=== PATIENT | male | born 1940 | race Caucasian/White ===

== ENCOUNTER → 2017-04-05 | Day surgery (SDC) | payer OTHER ==
[~2017-04-05] VITALS: Ht 185.4 cm; Wt 71.2 kg
[~2017-04-05] MED LIST: ALBUTEROL2.5 MG/0.5 NEB; AUGMENTIN 875 M1 TAB PO; AZITHROMYCIN250 MG PO; BACTRIM DS 8001 TA1 PO; CLARITIN10 MG PO; COUMADIN1 M1 PO; COUMADIN1 MG PO; D-1000 185 MG-11 TAB PO; DELTASONE20 MG PO; DOXYCYCLINE100 M3 PO; DUONEB 3 MG/3 ML3 M1 NEB; Diltiazem240 MG PO; ELIQUIS5 M1 PO; FUROSEMIDE20 MG PO; GLUCOPHAGE500 M1 PO; KEFLEX500 MG PO; LASIX40 MG PO; LEVAQUIN750 M1 PO; LEVOFLOXACIN500 MG PO; MEDROL DOSEPAK4 MG PO; PREDNISONE10 MG PO; PROVENTIL0.09 MG/A1 INH; PROVENTIL0.09 MG/AC INH; SPIRIVA18 MCG IH; SPIRIVA18 MCG INH; SYMBICORT1 AE1 INH; VENTOLIN 02.5 MG/3 M INH; VIAGRA100 MG PO; VITAMIN B12 1541 TAB PO; WARFARIN SOD5 MG PO
--- NOTE | ~2017-04-05 | O ---
[place], [place] OPERATIVE NOTE [id number] UNIT #: [id number] ROOM: DOCTOR: SHAD ROSE MD BIRTHDATE: [birth year] DOS: 04/05/2017 PREOPERATIVE DIAGNOSIS: Cataract, right eye. POSTOPERATIVE DIAGNOSIS: Cataract, right eye. OPERATION: Extracapsular cataract extraction by phacoemulsification with posterior chamber intraocular lens implantation, right eye. ANESTHESIA: Monitored standby. OPERATIVE FINDINGS AND PROCEDURE: 2% Xylocaine topical anesthetic gel was applied to the eye in the preop area. The patient was taken to the operating room and prepped and draped in the standard fashion for sterile intraocular surgery. A time out procedure was performed verifying correct patient, correct site and corrects lens with Jyoti Rose M.D. The operating microscope was swung into position and the lid speculum was inserted. Using a Shilpi paracentesis blade, a paracentesis was made through clear cornea. Viscoelastic was used to fill the anterior chamber. Using a metal keratome a 2.4 mm self-sealing clear corneal cataract incision was made temporally at the limbus. Using a pre-bent 25 gauge cystotome needle, a standard continuous curvilinear capsulorrhexis was performed. The anterior capsule was removed with forceps. The lens nucleus was hydrodissected and phacoemulsified in the posterior chamber. Cortical material was removed with the irrigation aspiration hand piece and the posterior capsule was then polished with a curet under irrigation. The posterior chamber and capsular bag were filled with viscoelastic. A posterior chamber intraocular lens manufactured by: [employer], Model #[id number], 18.5 diopters in strength were then inserted into the posterior chamber and within the capsular bag using the lens cartridge and injector system. Viscoelastic was removed using the irrigation aspiration handpiece. The anterior chamber was filled with balanced salt solution through the paracentesis. Both the paracentesis site and cataract incisions were hydrated with BSS and verified to be water-tight and self-sealing. Cefuroxime 1 mg/0.1 mL was injected into the anterior chamber through the paracentesis site. The incision checked to be water-tight using a Weck-Kyara sponge. The integrity of the cataract wound and ocular tension were checked. Lid speculum and drapes were removed. The patient was transferred from the operating room to the recovery room in satisfactory condition. [place], [place] OPERATIVE NOTE NAME: KUNALBRIGIDA UNIT #: [id number] ROOM: DOCTOR: SHAD ROSE MD BIRTHDATE: [birth year] SHAD ROSE MD CM:OPRECORD:OPERATIVE NOTE [id number] SHAD ROSE MD 04/05/17 1809 interface
[2017-04-05 12:45] VITALS: BP 138/68
[2017-04-05 13:50] VITALS: BP 125/74
[2017-04-05 14:11] VITALS: BP 112/76
[2017-04-05 14:22] VITALS: BP 150/76
== END | disposition home or self-care (01) ==
LOC: SDC 04-03 15:30
DX: H26.9 Unspecified cataract (principal); I48.91 Unspecified atrial fibrillation; J45.909 Unspecified asthma, uncomplicated; I10 Essential (primary) hypertension; I50.9 Heart failure, unspecified; J43.9 Emphysema, unspecified; Z98.890 Other specified postprocedural states; Z79.01 Long term (current) use of anticoagulants; Z85.46 Personal history of malignant neoplasm of prostate; Z87.891 Personal history of nicotine dependence; Z80.9 Family history of malignant neoplasm, unspecified; Z82.49 Family history of ischemic heart disease and other diseases of the circulatory system; Z87.81 Personal history of (healed) traumatic fracture; Z90.49 Acquired absence of other specified parts of digestive tract

== ENCOUNTER 2017-05-13 17:13 | Inpatient (IN) | payer OTHER ==
[~2017-05-13] VITALS: Ht 185.4 cm; Wt 112.5 kg
--- NOTE | ~2017-05-13 | CON ---
[place], [place] REPORT OF CONSULTATION NAME[id number] UNIT #: [id number] ROOM: 410 DOCTOR: VARINDER ALAS MD BIRTHDATE: [birth year] DOS: 05/15/2017 HISTORY OF PRESENT ILLNESS: This is a 77-year-old -[place] man with severe COPD with ____ who has been on oxygen for a long time. He also has chronic atrial fibrillation, which he has had for the last 13 years. He has essential hypertension, diabetes mellitus, anemia, hypercoagulable state according to his notes, sleep apnea and obesity. He also has what sounds like an incisional abdominal hernia. He came to the hospital a couple of days ago because of some swelling and redness around left eye, which is not an issue anymore. He has chronic shortness of breath worsening and had no palpitations, no dizziness or loss of consciousness. He did not have any chest pain or pressure. He has had swelling in the legs for a very long time, in fact my notes of 2008 mention of edema of the legs. This has got worse recently. He has difficulty breathing sitting and lying down. No nausea, abdominal pain or blood in the stools. He is on 4 bronchodilators for his COPD, apixaban 5 mg b.i.d., cholecalciferol with vitamin D 1000 units daily, diltiazem 240 daily, furosemide 40 mg b.i.d. SOCIAL HISTORY: He quit smoking about 5 years ago. PHYSICAL EXAMINATION: GENERAL: This is a patient who is wearing oxygen. He is very tachypneic and seems to be using accessory muscles of respiration. He seems somewhat distraught. Complexion is fine. He is afebrile. There is no thyromegaly or finger clubbing. VITAL SIGNS: Pulse is irregular at 80 beats per minute, blood pressure 138/65. NECK: JVP is greater than 15 cm with positive AJR. External jugular veins are also distended. there is no carotid bruit. CARDIAC: Auscultation reveals irregular heart rate. No murmurs or rub. He has 4+ pedal edema and 3+ pretibial edema and there is mild erythema of the feet. RESPIRATORY: He is tachypneic. Percussion note reveals hyperresonance and auscultation reveals severely reduced breath sounds bilaterally. ABDOMEN: Somewhat large with large abdominal wall hernia and liver may be enlarged. DIAGNOSTIC STUDIES: An ECG showed atrial fibrillation with rapid ventricular rate, an intraventricular conduction defect and no ST abnormalities. Troponin I levels are normal. Chest x-ray demonstrated no pulmonary edema. Renal function is normal. Potassium 3.8 and lipid profile is excellent. IMPRESSION: 1. This patient has chronic atrial fibrillation. The rate has been somewhat fast. 2. He has had diagnosis of heart failure diagnosed previously. Currently it seems it is predominantly right-sided failure with markedly elevated jugular [place], [place] REPORT OF CONSULTATION NAME: BRIGIDA SYED UNIT #: [id number] ROOM: 410 DOCTOR: VARINDER ALAS MD BIRTHDATE: [birth year] venous pressure and much peripheral edema, but no pulmonary edema. 3. He has not had any chest pain. ECG shows nothing to be concerned regarding coronary artery disease. RECOMMENDATIONS: 1.Dose of furosemide should be increased to unload more of his edema, which is quite symptomatic. 2. Heart rate needs to be controlled adequately. I would recommend using a beta richard since diltiazem is also making edema in the lower extremities worse. I saw this patient on behalf of Dr. Alvarez. He will be seeing this patient tomorrow. VARINDER ALAS MD CM:CONSTR:REPORT OF CONSULTATION 180 05/15/17 9120 interface
--- NOTE | ~2017-05-13 | ST ---
[place], [place] EXERCISE STRESS TEST REPORT NAME: BRIGIDA SYED UNIT #: [id number] ROOM: 410 DOCTOR: MARIKA CASTILLO MD BIRTHDATE: [birth year] DOS: 05/15/2017 Baseline cardiogram atrial fibrillation with controlled ventricular response with Lexiscan, no new EKG changes. No chest discomfort. Blood pressure and heart rate response was normal. FINAL IMPRESSION: Indeterminate test secondary to the underlying atrial fibrillation. No new EKG changes. No chest pain. Blood pressure and heart rate response was normal. Nuclear images will be reported separately. MARIKA CASTILLO MD CM:STRESS:EXERCISE STRESS TEST REPORT [id number] MARIKA CASTILLO MD
[2017-05-13 17:17] VITALS: BP 171/94
[2017-05-13 18:21] VITALS: BP 174/96
[2017-05-13 18:25] LABS: BASO % 0.2 % (0.0-1.0); EOS # 0.3 10*3/uL (0.0-0.4); EOS % 3.3 % (1.0-4.0); HEMATOCRIT 42.7 % (42.0-52.0); HEMOGLOBIN 13.6 g/dl (14.0-18.0); LYMPH # 1.9 10*3/uL (1.3-4.4); LYMPH % 21.9 % (27.0-41.0); MEAN CELL VOLUME 87.3 fl (80.0-94.0); MEAN CORPUSCULAR HGB 27.8 pg (27.0-31.0); MEAN CORPUSCULAR HGB CONC 31.9 g/dl (33.0-37.0); MEAN PLATELET VOLUME 11.9 fl (9.6-12.3); MONO % 11.8 % (3.0-9.0); NEUT # 5.4 10*3/uL (2.3-7.9); NEUT % 62.6 % (47.0-73.0); PLATELET COUNT AUTOMATED 211 10*3/uL (130-400); RED BLOOD COUNT 4.89 10*6/uL (4.50-5.90); RED CELL DISTRI WIDTH 14.3 % (0-14.5); WHITE BLOOD COUNT 8.6 10*3/uL (4.8-10.8)
[2017-05-13 18:41] LABS: ALBUMIN 3.6 gm/dl (3.1-4.5); ALKALINE PHOSPHATASE 73 U/L (45-117); BILIRUBIN, TOTAL 0.4 mg/dl (0.2-1.0); BUN 16 mg/dl (7-24); CARBON DIOXIDE 33 mmol/L (21-32); CHLORIDE 103 mmol/L (98-107); EST GLOM FILT AFRICAN AMERICAN > 60 ml/min; GLUCOSE 112 mg/dL (65-99); POTASSIUM 3.5 mmol/L (3.5-5.1); SGOT/AST 11 IU/L (3-35); SGPT/ALT 14 U/L (12-78); SODIUM 141 mmol/L (136-145)
[2017-05-13 19:55] VITALS: BP 172/95
[2017-05-13 20:12] LABS: ABG BASE EXCESS 1.8 mmol/L (-2.0-2.0); ABG CO2 CONTENT 29.4 mmol/L (23-27); ABG HCO3 27.9 mmol/l (22-26); ARTERIAL BLOOD GAS PH 7.357 (7.35-7.45); ARTERIAL BLOOD GAS PO2 78.4 mmHg (80-90)
[2017-05-13 21:20] VITALS: BP 164/82
[2017-05-14] VITALS: BP 170/98
[2017-05-14 04:00] VITALS: BP 147/68
[2017-05-14 05:50] LABS: HEMOGLOBIN A1c 6.8 % (4.8-5.6)
[2017-05-14 05:56] LABS: HEMATOCRIT 43.8 % (42.0-52.0); HEMOGLOBIN 13.7 g/dl (14.0-18.0); MEAN CELL VOLUME 86.2 fl (80.0-94.0); MEAN CORPUSCULAR HGB CONC 31.3 g/dl (33.0-37.0); PLATELET COUNT AUTOMATED 227 10*3/uL (130-400); RED BLOOD COUNT 5.08 10*6/uL (4.50-5.90); RED CELL DISTRI WIDTH 14.2 % (0-14.5); WHITE BLOOD COUNT 8.1 10*3/uL (4.8-10.8)
[2017-05-14 06:07] LABS: ALBUMIN 3.7 gm/dl (3.1-4.5); ALKALINE PHOSPHATASE 74 U/L (45-117); BILIRUBIN, TOTAL 0.5 mg/dl (0.2-1.0); BUN 14 mg/dl (7-24); CARBON DIOXIDE 28 mmol/L (21-32); CHLORIDE 105 mmol/L (98-107); CHOLESTEROL 125 mg/dL (<200); EST GLOM FILT AFRICAN AMERICAN > 60 ml/min; GLUCOSE 169 mg/dL (65-99); HDL CHOLESTEROL 60 mg/dl (40-60); LDL CHOLESTEROL 59 mg/dL (9-159); MAGNESIUM 2.1 mg/dL (1.5-2.1); PHOSPHOROUS 3.2 mg/dL (2.5-4.9); POTASSIUM 3.9 mmol/L (3.5-5.1); SGOT/AST 20 IU/L (3-35); SGPT/ALT 24 U/L (12-78); SODIUM 139 mmol/L (136-145); TOTAL PROTEIN 7.3 gm/dL (6.4-8.2); TRIGLYCERIDES 28 mg/dl (<150); VLDL CHOLESTEROL 6 mg/dL (6-40)
[2017-05-14 06:12] LABS: THYROID STIM HORMONE (HS) 0.337 uIU/ml (0.358-4.75)
[2017-05-14 06:32] LABS: FOLIC ACID 21.47 ng/mL (>5.38); VITAMIN D, 25-HYDROXY 35.3 ng/mL (30-100)
[2017-05-14 06:33] LABS: LYMPHOCYTE # 0.3 10*3/uL (1.3-4.4); NEUTROPHIL # 7.8 10*3/uL (2.3-7.9); NEUTROPHILS 96 % (47-73); PLATELET SUFFICIENCY NORMAL (NORMAL); TOTAL CELLS COUNTED 100 #CELLS
[2017-05-14 08:00] VITALS: BP 146/88
[2017-05-14 12:00] VITALS: BP 133/83
[2017-05-14 16:00] VITALS: BP 162/71
[2017-05-14 20:00] VITALS: BP 124/73
[2017-05-15] VITALS: BP 143/62
[2017-05-15 05:33] LABS: BUN 18 mg/dl (7-24); CARBON DIOXIDE 31 mmol/L (21-32); CHLORIDE 104 mmol/L (98-107); EST GLOM FILT AFRICAN AMERICAN > 60 ml/min; GLUCOSE 148 mg/dL (65-99); POTASSIUM 4.6 mmol/L (3.5-5.1); SODIUM 141 mmol/L (136-145)
[2017-05-15 05:35] LABS: VANCOMYCIN TROUGH 16.3 ug/mL (10-20)
[2017-05-15 06:09] LABS: BASO % 0.1 % (0.0-1.0); HEMATOCRIT 40.2 % (42.0-52.0); HEMOGLOBIN 12.7 g/dl (14.0-18.0); IG # 0.1 10*3/uL (0.0-0.1); LYMPH # 1.1 10*3/uL (1.3-4.4); LYMPH % 8.2 % (27.0-41.0); MEAN CELL VOLUME 87.6 fl (80.0-94.0); MEAN CORPUSCULAR HGB 27.7 pg (27.0-31.0); MEAN CORPUSCULAR HGB CONC 31.6 g/dl (33.0-37.0); MEAN PLATELET VOLUME 12.2 fl (9.6-12.3); MONO # 1.3 10*3/uL (0.1-1.0); MONO % 9.8 % (3.0-9.0); NEUT # 10.5 10*3/uL (2.3-7.9); NEUT % 81.5 % (47.0-73.0); PLATELET COUNT AUTOMATED 205 10*3/uL (130-400); RED BLOOD COUNT 4.59 10*6/uL (4.50-5.90); RED CELL DISTRI WIDTH 14.2 % (0-14.5); WHITE BLOOD COUNT 12.8 10*3/uL (4.8-10.8)
[2017-05-15 06:16] LABS: INTERNATIONAL NORM RATIO 1.1 (2.0-3.5); PROTHROMBIN TIME 11.2 SECONDS (9.0-12.4)
[2017-05-15 08:00] VITALS: BP 118/76
[2017-05-15 12:00] VITALS: BP 132/77
[2017-05-15 15:59] VITALS: BP 138/65
[2017-05-15 20:00] VITALS: BP 138/70
[2017-05-16] VITALS: BP 155/70
[2017-05-16 05:26] LABS: BUN 19 mg/dl (7-24); CARBON DIOXIDE 34 mmol/L (21-32); CHLORIDE 101 mmol/L (98-107); EST GLOM FILT AFRICAN AMERICAN > 60 ml/min; GLUCOSE 99 mg/dL (65-99); SODIUM 142 mmol/L (136-145)
[2017-05-16 05:27] LABS: POTASSIUM 3.3 mmol/L (3.5-5.1)
[2017-05-16 06:34] LABS: HEMATOCRIT 44.6 % (42.0-52.0); HEMOGLOBIN 13.9 g/dl (14.0-18.0); MEAN CELL VOLUME 86.9 fl (80.0-94.0); MEAN CORPUSCULAR HGB 27.1 pg (27.0-31.0); MEAN CORPUSCULAR HGB CONC 31.2 g/dl (33.0-37.0); MEAN PLATELET VOLUME 12.3 fl (9.6-12.3); PLATELET COUNT AUTOMATED 242 10*3/uL (130-400); RED BLOOD COUNT 5.13 10*6/uL (4.50-5.90); RED CELL DISTRI WIDTH 14.3 % (0-14.5); WHITE BLOOD COUNT 12.7 10*3/uL (4.8-10.8)
[2017-05-16 07:18] LABS: BASOPHIL # 0.1 10*3/uL (0-0.1); BASOPHILS 1 % (0-1); EOSINOPHIL # 0.1 10*3/uL (0-0.4); EOSINOPHILS 1 % (1-4); MONOCYTE # 1.7 10*3/uL (0.1-1.0); NEUTROPHIL # 8.8 10*3/uL (2.3-7.9); NEUTROPHILS 69 % (47-73); PLATELET SUFFICIENCY NORMAL (NORMAL); TOTAL CELLS COUNTED 100 #CELLS
[2017-05-16 09:13] VITALS: BP 140/71
[2017-05-16 12:00] VITALS: BP 140/88
[2017-05-16 16:00] VITALS: BP 140/89
[2017-05-16] MEDS ORDERED: DILTIAZEM 24HR120 MG PO (17:19)
[2017-05-16] MEDS ORDERED: CLINDAMYCIN HC300 MG PO (17:19)
[2017-05-16] MEDS ORDERED: LASIX80 MG PO (17:19)
[2017-05-16] MEDS ORDERED: K-TAB20 MEQ PO (17:19)
[2017-05-16] MEDS ORDERED: LOPRESSOR25 MG PO (17:19)
== END 2017-05-16 18:08 | disposition home or self-care (01) | DRG 872 ==
LOC: ED 17:13 → EDHOLD 20:45 → 4E 20:45
PROVIDERS: Emergency Medicine; Hospitalist; Internal Medicine; Student in an Organized Health Care Education/Training Program
PROC: 5A09357 Assistance with Respiratory Ventilation, Less than 24 Consecutive Hours, Continuous Positive Airway Pressure (ICD-10-PCS; principal; 2017-05-14)
PROC: 3E033HZ Introduction of Radioactive Substance into Peripheral Vein, Percutaneous Approach (ICD-10-PCS; 2017-05-15)
PROC: 4A02XM4 Measurement of Cardiac Total Activity, External Approach (ICD-10-PCS; 2017-05-15)
DX: A41.9 Sepsis, unspecified organism (principal); I47.2 Ventricular tachycardia; J96.11 Chronic respiratory failure with hypoxia; D68.59 Other primary thrombophilia; I50.32 Chronic diastolic (congestive) heart failure; I11.0 Hypertensive heart disease with heart failure; E11.65 Type 2 diabetes mellitus with hyperglycemia; Z99.81 Dependence on supplemental oxygen; J96.12 Chronic respiratory failure with hypercapnia; L03.213 Periorbital cellulitis; I48.2 Chronic atrial fibrillation; E66.9 Obesity, unspecified; J44.9 Chronic obstructive pulmonary disease, unspecified; E05.80 Other thyrotoxicosis without thyrotoxic crisis or storm; D64.9 Anemia, unspecified; Z90.49 Acquired absence of other specified parts of digestive tract; Z87.891 Personal history of nicotine dependence; Z72.89 Other problems related to lifestyle; Z80.0 Family history of malignant neoplasm of digestive organs; Z82.49 Family history of ischemic heart disease and other diseases of the circulatory system; Z68.32 Body mass index [BMI] 32.0-32.9, adult; Z79.899 Other long term (current) drug therapy

== ENCOUNTER 2017-09-08 03:52 | Inpatient (IN) | payer OTHER ==
[2017-09-08] VITALS (8 sets, daily range): BP systolic 130–186; BP diastolic 74–97
[~2017-09-08] VITALS: Ht 185.4 cm; Wt 120.3 kg
--- NOTE | ~2017-09-08 | EKG ---
[place], [place] ELECTROCARDIOGRAM REPORT NAME: BRIGIDA SYED UNIT #: [id number] ROOM: [facility] DOCTOR: VARINDER ALAS MD BIRTHDATE: [birth year] DOS: 09/09/2017 TIME: 0310 hours. Atrial fibrillation with ventricular rate of 74 beats per minute. Complete right bundle-branch block. An abnormal ECG. No previous tracing is available for comparison. VARINDER ALAS MD CM:EKGRPT:ELECTROCARDIOGRAM REPORT 1620 13 VARINDER ALAS MD
--- NOTE | ~2017-09-08 | EKG ---
[place], [place] ELECTROCARDIOGRAM REPORT NAME: BRIGIDA SYED UNIT #: [id number] ROOM: [facility] DOCTOR: VARINDER ALAS MD BIRTHDATE: [birth year] DOS: 09/08/2017 TIME: 0902 hours. Atrial fibrillation with rapid ventricular rate at 110 beats per minute. Complete right bundle-branch block. When compared with the ECG done about 4 hours earlier, heart rate has increased somewhat. VARINDER ALAS MD CM:EKGRPT:ELECTROCARDIOGRAM REPORT 1613 193 VARINDER ALAS MD
--- NOTE | ~2017-09-08 | EKG ---
[place], [place] ELECTROCARDIOGRAM REPORT NAME: BRIGIDA SYED UNIT #: [id number] ROOM: [facility] DOCTOR: VARINDER ALAS MD BIRTHDATE: [birth year] DOS: 09/08/2017 TIME: 0414 hours. Atrial fibrillation with ventricular rate of 99 beats per minute. Complete right bundle-branch block. An abnormal ECG. No previous tracing is available for comparison. VARINDER ALAS MD CM:EKGRPT:ELECTROCARDIOGRAM REPORT 1613 193 VARINDER ALAS MD
[~2017-09-08 03:52] MED LIST changes: +CLINDAMYCIN HC300 MG PO; +DILTIAZEM 24HR120 MG PO; +K-TAB20 MEQ PO; +LASIX80 MG PO; +LOPRESSOR25 MG PO
[2017-09-08 04:33] LABS: BASO # 0.1 10*3/uL (0.0-0.1); BASO % 0.3 % (0.0-1.0); EOS # 0.6 10*3/uL (0.0-0.4); EOS % 4.3 % (1.0-4.0); HEMATOCRIT 43.8 % (42.0-52.0); HEMOGLOBIN 13.9 g/dl (14.0-18.0); LYMPH # 3.2 10*3/uL (1.3-4.4); LYMPH % 21.3 % (27.0-41.0); MEAN CELL VOLUME 88.3 fl (80.0-94.0); MEAN CORPUSCULAR HGB CONC 31.7 g/dl (33.0-37.0); MEAN PLATELET VOLUME 11.1 fl (9.6-12.3); MONO # 1.1 10*3/uL (0.1-1.0); MONO % 7.3 % (3.0-9.0); NEUT # 9.9 10*3/uL (2.3-7.9); NEUT % 66.4 % (47.0-73.0); PLATELET COUNT AUTOMATED 255 10*3/uL (130-400); RED BLOOD COUNT 4.96 10*6/uL (4.50-5.90); RED CELL DISTRI WIDTH 14.6 % (0-14.5); WHITE BLOOD COUNT 14.9 10*3/uL (4.8-10.8)
[2017-09-08 04:51] LABS: ALBUMIN 3.6 gm/dl (3.1-4.5); ALKALINE PHOSPHATASE 94 U/L (45-117); BUN 16 mg/dl (7-24); CHLORIDE 105 mmol/L (98-107); CREATININE 1.24 mg/dL (0.70-1.30); POTASSIUM 4.2 mmol/L (3.5-5.1); SGOT/AST 31 IU/L (3-35); SGPT/ALT 46 U/L (12-78); SODIUM 142 mmol/L (136-145); TOTAL PROTEIN 7.1 gm/dL (6.4-8.2)
[2017-09-08 04:52] LABS: TROPONIN I 0.043 ng/ml (<0.045)
--- NOTE | 2017-09-08 06:15 | NUR ---
A 77, admitted to , under the services of AARON Conteh DO with a diagnosis of COPD,SEPSIS,PNEUMONITIS. Chief complaint is SHORTNESS OF BREATH. Patient arrived via bed from ER. Monitor applied. Initial assessment completed. Vital signs taken and recorded. AARON CONTEH DO notified of admission to the unit. Orders received. See assessment for past medical history, medications and allergies. Patient and/or family oriented to unit. [facility] visitation policy reviewed. Clothing/patient valuable form completed. TAHIR DAWN
--- NOTE | 2017-09-08 06:20 | NUR ---
Medication reconciliation updated and verified with patient who is alert and oriented x3 and knows his medication and dosages when asked.
--- NOTE | 2017-09-08 08:09 | NUR ---
PT HEART RATE 160'S. DR. PEREZ CALLED AND NOTIFIED OF PT'S RECENT BREATHING TX, THAT THE PT IS IS MOVING IN BED, AND THAT BEARING DOWN INCREASED THE PT'S HR. DR. PEREZ STATED HE WOULD BE PUTTING IN ORDERS FOR THE PT. RIGHT NOW THE PT IS A/OX3, DENIES CP AND SOB. THE PT DOES C/O OF PALPITATIONS AND RACING HEART. NO OTHER COMPLAINTS FROM PT AT THIS TIME.
--- NOTE | 2017-09-08 09:00 | NUR ---
Cardiopulmonary Supervisor in to talk to patient. Patient states lives at home with alone. There are few steps in the home. Physician: [facility] Home health services: none Patient's level of ADLs: MINIMAL ASSIST Patient has working utilities: all working DME: cane, rollator walker, home oxygen nebulizer from [facility] Follow-up physician's appointment after d/c: will be made by hospitalist nurse director upon discharge Does patient want to access PORTAL?: no Discharge plan discussed with patient, patient lives at home alone, states he gets around with a walker, patient has [employer] 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 TAJ LOZANO
--- NOTE | 2017-09-08 09:24 | NUR ---
DR. CASTILLO CALLED AND NOTIFIED OF CONSULT. THE WAS CONCERNED ABOUT NOT BEING ABLE TO SEE THE PATIENT UNTIL TOMORROW. THE WAS UPDATED ON THE PATIENTS CONDITION AND STATED IF NEEDED WE COULD CONSULT ANOTHER NUCLEAR CONTROL OPERATOR BUT IF NOT DR. CASTILLO WILL SEE THE PATIENT TOMORROW MORNING. DR. PEREZ NOTIFIED AND STATED TO KEEP JONATHAN ON THE CASE. NO OTHER CONCERNS.
--- NOTE | 2017-09-08 20:31 | NUR ---
PT. IS SITTING UP ON SIDE OF BED AT THIS TIME. PT. DOES NOT VOICE ANY CONCERNS AND DOES NOT HAVE ANY COMPLAINTS AT THIS TIME. NO DISTRESS NOTED, PT. HAS HOB ELEVATED AND CALL LIGHT WITHIN REACH. SEE SHIFT ASSESSMENT.
--- NOTE | 2017-09-08 22:11 | NUR ---
1 UNIT OF BLOOD TRANSFUSED, PT. TOLERATED PROCEDURE WELL. SECOND UNIT HANGING AND RUNNING. WILL CONTINUE TO MONITOR.
[2017-09-09] VITALS: BP 145/88
--- NOTE | 2017-09-09 01:58 | NUR ---
PRN TYLENOL GIVEN FOR PT COMPLAINTS OF BACK PAIN RATING IT A 6 OUT OF 10. CALL LIGHT WITHIN REACH, WILL MONITOR
--- NOTE | 2017-09-09 02:45 | NUR ---
DR. LUNA CONTACTED IN REGARDS TO PT. EKG CHANGES. DR. LUNA STATED THAT THEY WILL BE UP TO CHECK HIM OUT.
[2017-09-09 06:52] LABS: BASO % 0.1 % (0.0-1.0); HEMATOCRIT 38.5 % (42.0-52.0); HEMOGLOBIN 12.3 g/dl (14.0-18.0); LYMPH % 5.9 % (27.0-41.0); MEAN CELL VOLUME 87.5 fl (80.0-94.0); MEAN CORPUSCULAR HGB CONC 31.9 g/dl (33.0-37.0); MEAN PLATELET VOLUME 11.8 fl (9.6-12.3); MONO # 0.7 10*3/uL (0.1-1.0); MONO % 3.9 % (3.0-9.0); NEUT # 14.8 10*3/uL (2.3-7.9); NEUT % 89.4 % (47.0-73.0); PLATELET COUNT AUTOMATED 226 10*3/uL (130-400); RED CELL DISTRI WIDTH 14.5 % (0-14.5); WHITE BLOOD COUNT 16.6 10*3/uL (4.8-10.8)
[2017-09-09 07:14] LABS: ALBUMIN 3.4 gm/dl (3.1-4.5); ALKALINE PHOSPHATASE 75 U/L (45-117); BUN 20 mg/dl (7-24); CHLORIDE 104 mmol/L (98-107); CREATININE 1.16 mg/dL (0.70-1.30); FREE T4 0.95 ng/dl (0.76-1.46); PHOSPHOROUS 2.8 mg/dL (2.5-4.9); POTASSIUM 4.4 mmol/L (3.5-5.1); SGOT/AST 25 IU/L (3-35); SGPT/ALT 51 U/L (12-78); SODIUM 140 mmol/L (136-145); TOTAL PROTEIN 6.6 gm/dL (6.4-8.2)
[2017-09-09 07:18] LABS: THYROID STIM HORMONE (HS) 0.257 uIU/ml (0.358-4.75)
[2017-09-09 07:20] LABS: ACT PARTIAL THROMBO TIME 31.5 SECONDS (20.8-31.5)
[2017-09-09 08:00] VITALS: BP 104/52
[2017-09-09 08:29] LABS: VITAMIN D, 25-HYDROXY 33.6 ng/mL (30-100)
[2017-09-09 12:00] VITALS: BP 142/89
[2017-09-09 16:00] VITALS: BP 142/83
[2017-09-09 20:00] VITALS: BP 161/70
[2017-09-10] VITALS: BP 143/79
[2017-09-10 07:16] LABS: HEMATOCRIT 42.6 % (42.0-52.0); HEMOGLOBIN 13.7 g/dl (14.0-18.0); MEAN CELL VOLUME 88.4 fl (80.0-94.0); MEAN CORPUSCULAR HGB 28.4 pg (27.0-31.0); MEAN CORPUSCULAR HGB CONC 32.2 g/dl (33.0-37.0); MEAN PLATELET VOLUME 11.2 fl (9.6-12.3); PLATELET COUNT AUTOMATED 286 10*3/uL (130-400); RED BLOOD COUNT 4.82 10*6/uL (4.50-5.90); RED CELL DISTRI WIDTH 14.8 % (0-14.5); WHITE BLOOD COUNT 26.5 10*3/uL (4.8-10.8)
--- NOTE | 2017-09-10 07:35 | NUR ---
Shift chart check completed.
[2017-09-10 07:37] LABS: ACANTHOCYTES FEW; PLATELET SUFFICIENCY NORMAL (NORMAL); TOTAL CELLS COUNTED 100 #CELLS
[2017-09-10 07:40] LABS: BUN 30 mg/dl (7-24); CHLORIDE 104 mmol/L (98-107); CREATININE 1.17 mg/dL (0.70-1.30); POTASSIUM 4.9 mmol/L (3.5-5.1); SODIUM 139 mmol/L (136-145)
[2017-09-10 08:00] VITALS: BP 140/80
[2017-09-10 12:00] VITALS: BP 119/81
--- NOTE | 2017-09-10 13:04 | NUR ---
SPOKE WITH DR ALEXANDRE. PATIENT WANTS TO STAY ANOTHER DAY.
[2017-09-10 16:00] VITALS: BP 138/82
[2017-09-10 20:00] VITALS: BP 147/89
[2017-09-11] VITALS: BP 151/88
[2017-09-11 04:00] VITALS: BP 150/82
[2017-09-11 06:34] LABS: BASO % 0.1 % (0.0-1.0); HEMATOCRIT 40.8 % (42.0-52.0); HEMOGLOBIN 12.9 g/dl (14.0-18.0); LYMPH # 0.9 10*3/uL (1.3-4.4); LYMPH % 4.2 % (27.0-41.0); MEAN CELL VOLUME 89.3 fl (80.0-94.0); MEAN CORPUSCULAR HGB 28.2 pg (27.0-31.0); MEAN CORPUSCULAR HGB CONC 31.6 g/dl (33.0-37.0); MONO # 1.1 10*3/uL (0.1-1.0); MONO % 5.1 % (3.0-9.0); NEUT # 18.6 10*3/uL (2.3-7.9); NEUT % 89.6 % (47.0-73.0); PLATELET COUNT AUTOMATED 250 10*3/uL (130-400); RED BLOOD COUNT 4.57 10*6/uL (4.50-5.90); RED CELL DISTRI WIDTH 14.9 % (0-14.5); WHITE BLOOD COUNT 20.8 10*3/uL (4.8-10.8)
[2017-09-11 07:02] LABS: BUN 31 mg/dl (7-24); CHLORIDE 103 mmol/L (98-107); CREATININE 1.15 mg/dL (0.70-1.30); POTASSIUM 4.7 mmol/L (3.5-5.1); SODIUM 140 mmol/L (136-145)
[2017-09-11 08:00] VITALS: BP 163/92
--- NOTE | 2017-09-11 08:00 | NUR ---
PT RESTING IN BED. NO DISTRESS NOTED. NO VOICED C/O. WILL MONITOR
[2017-09-11] MEDS ORDERED: PREDNISONE10 MG PO (11:34)
[2017-09-11] MEDS ORDERED: LEVAQUIN500 M2 PO (11:34)
[2017-09-11] MEDS ORDERED: MUCINEX ER600 MG PO (11:34)
[2017-09-11 12:00] VITALS: BP 158/68
--- NOTE | 2017-09-11 12:00 | NUR ---
PT HAS SKIN TEAR RIGHT 5TH TOE, PT STATES THAT PT GOT IT CAUGHT ON BATHROOM DOOR YESTERDAY AND CAUSED A SKIN TEAR. PT REFUSES TO HAVE PHOTOS TAKEN AND REFUSES TO HAVE A DRESSING APPLIED
--- NOTE | 2017-09-11 14:45 | NUR ---
Discharge instructions reviewed with patient/family. Patient receptive and verbalizes understanding. Follow-up care arranged. Written instructions given to patient/family. CHRISTIAN NORRIS
--- NOTE | 2017-09-11 16:17 | NUR ---
Location of the wound: right 5th toe Type of wound: skin tear Thickness: Partial Size: 1.5cm x 0.5cm x 0.1cm Tunneling: none Undermining: none Sinus Tract: none Presence of Exudate: Serous Amount: Light Color: Red Odor: None Periwound Skin Appearance: Normal Wound edges: approximated Pain (associated with wound): patient denied at time of assessment How does patient state this happened? patient states he pulled the blanket and tore the skin If wound is on legs/feet or hands, capillary refill time, pulses, color temp, sensation: capillary refill <3 seconds. Palpable pulse present Patient has intact scabs to BLE. NO reddness, NO odor noted. NO drainage noted. Dry skin noted to left back.
--- NOTE | 2017-09-12 07:33 | NUR ---
Patient discharged to home with [facility]. Received order, faxed clincals for referral.
== END 2017-09-11 14:35 | disposition home or self-care (01) | DRG 871 ==
LOC: ED 03:52 → EDHOLD 05:17 → 5E 05:17
PROVIDERS: Internal Medicine; Student in an Organized Health Care Education/Training Program; ADMIT Internal Medicine
PROC: 5A09357 Assistance with Respiratory Ventilation, Less than 24 Consecutive Hours, Continuous Positive Airway Pressure (ICD-10-PCS; principal; 2017-09-10)
DX: A41.9 Sepsis, unspecified organism (principal); J18.9 Pneumonia, unspecified organism; J96.11 Chronic respiratory failure with hypoxia; E11.65 Type 2 diabetes mellitus with hyperglycemia; I11.0 Hypertensive heart disease with heart failure; J96.12 Chronic respiratory failure with hypercapnia; I50.32 Chronic diastolic (congestive) heart failure; E66.01 Morbid (severe) obesity due to excess calories; E11.9 Type 2 diabetes mellitus without complications; D64.9 Anemia, unspecified; J44.1 Chronic obstructive pulmonary disease with (acute) exacerbation; J44.0 Chronic obstructive pulmonary disease with (acute) lower respiratory infection; I48.2 Chronic atrial fibrillation; E05.90 Thyrotoxicosis, unspecified without thyrotoxic crisis or storm; G47.30 Sleep apnea, unspecified; E53.8 Deficiency of other specified B group vitamins; Z99.81 Dependence on supplemental oxygen; Z79.899 Other long term (current) drug therapy; Z90.49 Acquired absence of other specified parts of digestive tract; Z87.891 Personal history of nicotine dependence; Z80.0 Family history of malignant neoplasm of digestive organs; Z82.49 Family history of ischemic heart disease and other diseases of the circulatory system; Z79.51 Long term (current) use of inhaled steroids; Z68.33 Body mass index [BMI] 33.0-33.9, adult

== ENCOUNTER 2017-11-07 00:03 | Inpatient (IN) | payer OTHER ==
[2017-11-07] VITALS (14 sets, daily range): BP systolic 128–209; BP diastolic 74–109
[~2017-11-07] VITALS: Ht 185.4 cm; Wt 125.4 kg
--- NOTE | ~2017-11-07 | PR ---
[place], [place] PROGRESS NOTE [id number] UNIT #: [id number] ROOM: 504 DOCTOR: CHIQUITA PEREZ DO BIRTHDATE: [birth year] DOS: 11/08/2017 SUBJECTIVE: The patient was seen and examined at bedside. The patient was sitting upright in no acute distress. The patient reports that his shortness of breath has mild improvement, continues to have cough without hemoptysis. No new complaints at this time. OBJECTIVE: VITAL SIGNS: Temperature 97.7, pulse is 96, respirations 18, blood pressure 130/60, pulse ox is 94% on 2 liters nasal cannula. GENERAL APPEARANCE: No acute distress. HEENT: Head is normocephalic, atraumatic. Nasal cannula in place. Eyes clear without injection. Oral mucosa is moist. NECK: Supple, nontender. CARDIOVASCULAR: S1 and S2 appreciated. Regular rate and rhythm. LUNGS: Diminished breath sounds in all lung chapin with expiratory wheezing and no crackles are appreciated. ABDOMEN: Soft, nontender, positive bowel signs. EXTREMITIES: No edema, clubbing or cyanosis. NEUROLOGIC: Negative for focal deficits. SKIN: No lesions or rashes LABORATORY DATA: White count was 14.6, hemoglobin 12.7, hematocrit 38.9, platelets count 210. BMP was normal with mild elevation of glucose 147. A1c was elevated at 6.7. Vitamin D 22.4, B12 367, folate 10.11, TSH 0.160. Blood gases showed a pH of 7.4 with pCO2 of 49.8 and pO2 of 126. Chest x-ray this morning showed cardiomegaly and COPD, no acute changes. IMPRESSION: 1. Acute on chronic obstructive pulmonary disease with hypoxia and hypercarbia. 2. History of congestive heart failure, diastolic dysfunction. 3. Obstructive sleep apnea. 4. Moderate obesity. 5. Chronic anticoagulation. PLAN OF CARE: Continue with Dulera, Levaquin, DuoNeb, Lasix, Solu-Medrol. We will continue to follow the patient, no change in current respiratory care at this time. The patient is clinically improved. We will continue to reassess for resolution of symptoms and discharge planning. CHIQUITA PEREZ DO [place], [place] PROGRESS NOTE NAME: BRIGIDA SYED UNIT #: [id number] ROOM: 504 DOCTOR: CHIQUITA PEREZ DO BIRTHDATE: [birth year] LIZBETH ARRINGTON MD CM:PNJAMAR [id number] CHIQUITA PEREZ DO 11/08/17 1325 interface
--- NOTE | ~2017-11-07 | PR ---
[place], [place] PROGRESS NOTE NAME: [facility]IDA [facility]ED [facility]: [id number] UNIT #: [id number] ROOM: 504 DOCTOR: MURPHY ALLEN MD,LIZBETH BIRTHDATE: [birth year] DOS: 11/08/2017 The patient was independently seen and examined with [id number] encounter for this addendum. History was confirmed. Physical examination was performed. Labs were reviewed. The assessment management for the patient was personally completed for today's visit. The patient's note which was done by the medical delivery technician was approved as well. SUBJECTIVE: He has been essentially improving with reduction in respiratory symptoms, shortness of breath, cough and others. The patient has not been noted symptoms of chest pain. Arterial blood gas was done on 3 liters nasal cannula shows improvement in the hypercarbia and normal pH noted today. The patient denies symptoms of chest pain and hemoptysis. The coughing and wheezing has been gradually improving. There were no symptoms of chest pain. The patient denies symptoms of headache. He was complaining of loose stools for this patient yesterday as well. PHYSICAL EXAMINATION: VITAL SIGNS: For the patient which has been recorded shows the temperature patient noted as normal, respiratory rate was normal, heart rate normal, blood pressure normal. Pulse oxygen saturation at this time on 3 liters nasal cannula was noted 98% saturation. HEENT: Chronic obesity. LUNGS: Noted decreased breath sounds, scattered expiratory wheezing. Moderate reduction in the breath sounds bilaterally was noted. ABDOMEN: Soft and nontender. EXTREMITIES: Noted obesity. Skin for the patient noted a dryness and mild edema and redness of the lower extremities. Partial reduction in edema noted for previous exam. CENTRAL NERVOUS SYSTEM: Intact. MUSCULOSKELETAL: No acute deformities. LABORATORY DATA: Chest x-ray of the patient that was done today have been reviewed from the PACS images personally. PA lateral view for today showed changes of severe COPD without any acute pulmonary infiltration. The arterial blood gas today at 3 liters, pH of 7.41, pCO2 49.8, platelet 126. CMP this morning, glucose 147, BUN and creatinine normal, CO2 of 36. PT/INR was 1.1. CBC this morning showed white count 14.6, mild anemia with normal platelet count. IMPRESSION: 1. Resolving acute hypercapnic and acute hypoxic respiratory failure in the patient at this time with exacerbation of chronic obstructive pulmonary disease. Partial reduction and improvement in symptoms, acute congestive heart failure, the patient with possibility of mild cellulitis of lower extremity cannot be excluded. 2. Metabolic alkalosis. 3. History of obstructive sleep apnea disorder. [place], [place] PROGRESS NOTE NAME: BRIGIDA SYED UNIT #: [id number] ROOM: [facility] DOCTOR: MURPHY ALLEN MD,LIZBETH BIRTHDATE: [birth year] PLAN OF CARE: At this time, the patient will be continued with bronchodilators, oxygen supplementation, corticosteroids and other medical management previously. No additional change in treatment at this time will be necessary. Reduction of steroids may be started tomorrow. The patient with possible consideration of home discharge depending further improvement in the respiratory symptoms. LIZBETH ARRINGTON MD CM:PNTRANS [phone] LIZBETH ALLEN MD 11/09/17 0155 interface
--- NOTE | ~2017-11-07 | PR ---
[place], [place] PROGRESS NOTE NAME[facility]DA [facility]ED [id number] UNIT #: [id number] ROOM: 504 DOCTOR: MURPHY ALLEN MD,LIZBETH BIRTHDATE: [birth year] DOS: 11/09/2017 SUBJECTIVE: The patient was independently seen and examined in [id number] encounter, history was confirmed, and labs were reviewed. The assessment and management was personally completed. The note done by the certified medical technician was approved. The patient has been noted progressive resolution improvement in respiratory symptom. The patient with cough, wheezing, shortness of breath and others. PHYSICAL EXAMINATION: VITAL SIGNS: Essentially normal vital signs. The pulse oxygen saturation for the patient was noted as 98% on 3 liters nasal cannula. LUNGS: The patient was noted with occasional wheezing. No crackles. ABDOMEN: Soft, obese, and nontender. EXTREMITIES: Without any edema. LABORATORY DATA: The patient's CBC was noted WBC count elevated 21,000, otherwise relatively normal CBC. The chest x-ray yesterday was done that excluded any pulmonary infiltration. Blood culture, no bacterial growth from 16th of this month. Certainly at this time, the patient has been noted with progressive improvement and resolution of the acute respiratory symptoms, exacerbation of COPD. History of obstructive sleep apnea disorder, stable. The patient could be considered for home discharge with tapering dose of prednisone and antibiotics. Certainly, CBC could be done as an outpatient. Most likely, the elevation of WBC count is related to the use of the corticosteroids. LIZBETH ARRINGTON MD CM:PNTRANS 1307 23 LIZBETH ALLEN MD 11/09/172022 interface
--- NOTE | ~2017-11-07 | CON ---
[place], [place] REPORT OF CONSULTATION NAME: BRIGIDA SYED [facility] #: [id number] UNIT #: [id number] ROOM: 504 DOCTOR: LIZBETH GORDON MD BIRTHDATE: [birth year] DOS: 11/07/2017 CONSULTATION REQUESTED BY: Hospitalist service. REASON FOR CONSULTATION: Complaints of shortness of breath and exacerbation of COPD. HISTORY OF PRESENT ILLNESS: A 77-year-old white male patient who has been known to me during his previous hospitalization does not follow up in the office on regular basis. He has been assessed in the Emergency this morning, as the patient complaining of having shortness of breath occurred for the last several hours symptoms of the patient has been noted gradually worsening. The patient denies symptoms of chest pain with that. However, he has been noted to cough without any sputum expectoration. The patient denies symptoms of chest pain or hemoptysis. The wheezing of the patient was reported on this admission as well. He has been noted with acute exacerbation of chronic obstructive pulmonary disease on this admission and has been started on treatment for that. The patient stated that after getting breathing treatment medication has been noted reduction of the respiratory symptom. However, the improvement has been noted suboptimal from this morning. REVIEW OF SYSTEMS: CONSTITUTIONAL: He does complain of symptoms of fatigue and tiredness. Denies symptoms of fever or chills. EYES: Denies any burning, redness, tenderness. ENT: Denies sore throat, hoarseness, otalgia, postnasal drainage or epistaxis or earache. CARDIOVASCULAR: Denies joint pain, edema, pain, lower extremity or palpitation. GASTROINTESTINAL: Denies dysphagia, nausea, vomiting, diarrhea, abdominal pain, hematemesis, melena, hematochezia. Denies abnormal weight loss, history of chronic obesity, unchanged. GENITOURINARY: No dysuria, suprapubic pain, or hematuria. MUSCULOSKELETAL: No acute joint pain, redness, or tenderness. SKIN: No lesions or rashes. CENTRAL NERVOUS SYSTEM: No dizziness, headache, diplopia, syncopal episodes. Remaining systems were reviewed, they were noted all negative. PAST MEDICAL HISTORY: 1. Centrilobular emphysema which were noted severe. 2. Chronic hypoxic respiratory failure. 3. Congestive heart failure with diastolic dysfunction. 4. Hypercoagulable status history. 5. Essential hypertension. 6. Moderate obesity. 7. Obstructive sleep apnea disorder. PAST SURGICAL HISTORY: 1. Exploratory laparotomy. 2. Appendectomy. 3. Inguinal hernia repair. [place], [place] REPORT OF CONSULTATION NAME: BRIGIDA SYED UNIT #: [id number] ROOM: [facility] DOCTOR: LIZBETH GORDON MD BIRTHDATE: [birth year] 3. Broken tibia and finger surgery in the past. SOCIAL HISTORY: The patient is . He lives at home. Tobacco use was noted for the patient since teens a pack of cigarettes per day, he stated he did not use of any tobacco products since 2012, history of intermittent use of beer was described in a week. Denies any other history of occupation related pulmonary exposure from the past. FAMILY HISTORY: The patient's father at 87 years of complication of acute myocardial infarction. Mother at the age 6060 years old, complication related to the cancer of the stomach. CURRENT MEDICATIONS: Administered noted use of Cardizem-CD, metoprolol tartrate, vitamin D, IV Solu-Medrol 40 mg b.i.d., Eliquis, Dulera, DuoNeb q. 4h., Lasix 40 mg IV daily, Levaquin IV daily and other p.r.n. medications administered. DRUG ALLERGIES: The patient noted as no known drug allergies. PHYSICAL EXAMINATION: GENERAL: A 77-year-old white male, currently sitting on the bed. The patient without any apparent distress, using oxygen supplementation nasal cannula. Height of the patient recorded on current admission by the nursing staff 6 feet 1 inch, weight of 276 pounds, BMI 36.4. VITAL SIGNS: Temperature normal, respiratory rate 32 on admission, currently 20, heart rate 97-106. The atrial fibrillation was noted on the EKG, blood pressure 160/80-150/94. The pulse oxygen saturation of the patient on 3 liters nasal cannula 93% saturation. HEENT: Head was atraumatic. Eyes nonicterus. Oral mucosa is moist. NECK: Supple. Decreased posterior pharyngeal space. CARDIOVASCULAR: S1, S2 audible. LUNGS: The patient noted with general reduction in breath sounds with moderate decreased breaths in the patient with expiratory wheezing without any crackles. ABDOMEN: Soft with moderate obesity, bowel sounds present without tenderness. EXTREMITIES: The patient was noted without any edema, clubbing, cyanosis. CENTRAL NERVOUS SYSTEM: The patient was noted cranial nerves 2-12 intact. No focal deficits. MUSCULOSKELETAL: No deformities. SKIN: No lesions or rashes. LABORATORY DATA: PT/INR of the patient noted normal this morning. Lactic acid this morning normal. CBC: WBC count 12.9, hemoglobin and hematocrit normal, platelet count were normal. Arterial blood gas for the patient, pH of 7.34, pCO2 59.4, pO2 76.0. CMP of the patient on admission today was noted normal BUN and creatinine, CO2 36. The chest x-ray of the patient, which was done, 1-view was reviewed does not show any acute pulmonary infiltration, findings of congestive heart failure. Increased pulmonary venous congestion marking was noted without any gross pulmonary infiltration, mild cardiomegaly cannot be excluded. [place], [place] REPORT OF CONSULTATION NAME: BRIGIDA SYED UNIT #: [id number] ROOM: [facility] DOCTOR: DANTE GORDON MDM BIRTHDATE: [birth year] IMPRESSION: 1. The patient who has been admitted to the hospital with a combination what appeared like acute congestive heart failure, diastolic dysfunction with associated findings of acute exacerbation of chronic obstructive pulmonary disease and possibility of acute bronchitis may be viral in origin cannot be excluded. 2. History of congestive heart failure, diastolic dysfunction. 3. Obstructive sleep apnea disorder. 4. Acute on chronic hypercapnic respiratory failure as well. 5. History of moderate obesity. 6. Chronic anticoagulation use of Eliquis with hypercoagulable status as well. PLAN OF TREATMENT: ____ use of the Lasix. Repeat an x-ray chest in the morning to reassess with PA lateral view, preferably. Monitoring the electrolytes. Continue current dose of corticosteroids no changes need to be made. At this time, the patient does not show signs of respiratory distress, noted fully awake and alert. No confusion. He could use his home CPAP unit/BIPAP from home for long-term management of his obstructive sleep apnea disorder would also help for current respiratory failure, hypercarbia. Monitoring the other supportive therapy, plan of management and care, usual treatment. Additional treatment changes will be done based on progression of the illness. Obtain the sputum for Gram-stain and culture as well if the patient is able to expectorate sputum as well. Other plan of management to be continued for the patient as ordered. Supportive care and plan of therapy as well. Additional changes in the treatment will be made based on progression of the illness. Obtain the arterial blood gas, the patient in the morning to reassess the resolution of the acute hypercarbia. Arterial blood gas will be done other time in case of any respiratory distress develop at that time. The patient may benefit from use of the BiPAP from the hospital settings. Thanks for allowing me to participate in the care of this patient. LIZBETH ARRINGTON MD CM:CONSTR:REPORT OF CONSULTATION 1601 11/08/17 0212 interface
--- NOTE | ~2017-11-07 | PR ---
[place], [place] PROGRESS NOTE NAME: BRIGIDA SYED UNIT #: [id number] ROOM: 504 DOCTOR: CHIQUITA PEREZ DO BIRTHDATE: [birth year] DOS: 11/09/2017 SUBJECTIVE: The patient is seen and examined, is sitting in chair at bedside. The patient has no new complaints at this time. The patient reports that his respiratory symptoms have resolved and that he is ready for discharge, no new complaints. OBJECTIVE: VITAL SIGNS: Temperature 97.7, pulse is 62, respirations 18, blood pressure 140/86, pulse ox 98% on 3 liters nasal cannula. GENERAL: Awake, alert and oriented x 3, no acute distress. HEENT: Eyes are clear. Nares are patent. Mucous membranes are moist. NECK: Supple, nontender. CARDIOVASCULAR: Regular rate and rhythm. No murmurs, gallops or rubs. PULMONARY: Mild expiratory wheezes without rales or rhonchi. ABDOMEN: Soft, nontender with positive bowel sounds. EXTREMITIES: Lower extremities are clear with edema, erythema, clubbing, cyanosis. NEUROLOGIC: Negative for focal deficits. SKIN: Negative for rashes or lesions. LABORATORY DATA: White count 21.0, hemoglobin 13.1, hematocrit 40.2, platelets 222, blood cultures remain negative. Chest x-ray from yesterday morning showed cardiomegaly and COPD. ASSESSMENT AND PLAN: 1. Resolved acute on chronic obstructive pulmonary disease with exacerbation and hypoxia and hypercapnia. 2. Mild metabolic alkalosis. 3. Obstructive sleep apnea. TREATMENT PLAN: The patient is medially stable from a pulmonary standpoint for discharge. Continue with antibiotics and steroid taper outpatient and followup as needed with Dr. Weaver for ongoing pulmonary care. CHIQUITA PEREZ DO [place], [place] PROGRESS NOTE NAME: BRIGIDA SYED UNIT #: [id number] ROOM: 504 DOCTOR: CHRISHCIQUITA PICKARD DO BIRTHDATE: [birth year] LIZBETH AZIZ, MD CM:GRACE [id number] CHIQUITA PEREZ DO 11/10/17 1003 interface
[~2017-11-07 00:03] MED LIST changes: +LEVAQUIN500 M2 PO; +MUCINEX ER600 MG PO
[2017-11-07 01:00] LABS: ABG BASE EXCESS 4.8 mmol/L (-2.0-2.0); ABG HCO3 31.9 mmol/l (22-26); ABG O2 SATURATION 94.7 % (95-97); ARTERIAL BLOOD GAS PCO2 59.4 mmHg (35-45); ARTERIAL BLOOD GAS PH 7.348 (7.35-7.45)
[2017-11-07 01:07] LABS: BASO # 0.1 10*3/uL (0.0-0.1); BASO % 0.4 % (0.0-1.0); EOS # 0.8 10*3/uL (0.0-0.4); EOS % 6.2 % (1.0-4.0); HEMATOCRIT 43.8 % (42.0-52.0); HEMOGLOBIN 13.9 g/dl (14.0-18.0); LYMPH # 4.1 10*3/uL (1.3-4.4); LYMPH % 31.5 % (27.0-41.0); MEAN CELL VOLUME 89.2 fl (80.0-94.0); MEAN CORPUSCULAR HGB 28.3 pg (27.0-31.0); MEAN CORPUSCULAR HGB CONC 31.7 g/dl (33.0-37.0); MEAN PLATELET VOLUME 11.6 fl (9.6-12.3); MONO # 1.3 10*3/uL (0.1-1.0); MONO % 9.7 % (3.0-9.0); NEUT # 6.7 10*3/uL (2.3-7.9); NEUT % 51.8 % (47.0-73.0); PLATELET COUNT AUTOMATED 203 10*3/uL (130-400); RED BLOOD COUNT 4.91 10*6/uL (4.50-5.90); RED CELL DISTRI WIDTH 14.5 % (0-14.5); WHITE BLOOD COUNT 12.9 10*3/uL (4.8-10.8)
[2017-11-07 01:23] LABS: ALBUMIN 3.8 gm/dl (3.1-4.5); ALKALINE PHOSPHATASE 91 U/L (45-117); BUN 16 mg/dl (7-24); CHLORIDE 102 mmol/L (98-107); CREATININE 1.24 mg/dL (0.70-1.30); POTASSIUM 4.3 mmol/L (3.5-5.1); SGOT/AST 16 IU/L (3-35); SGPT/ALT 19 U/L (12-78); SODIUM 144 mmol/L (136-145); TOTAL PROTEIN 7.2 gm/dL (6.4-8.2)
[2017-11-07 01:25] LABS: TROPONIN I 0.032 ng/ml (<0.045)
[2017-11-08] VITALS: BP 122/62
[2017-11-08 06:42] LABS: BASO % 0.1 % (0.0-1.0); HEMATOCRIT 38.9 % (42.0-52.0); HEMOGLOBIN 12.7 g/dl (14.0-18.0); LYMPH # 0.9 10*3/uL (1.3-4.4); LYMPH % 6.3 % (27.0-41.0); MEAN CELL VOLUME 88.2 fl (80.0-94.0); MEAN CORPUSCULAR HGB 28.8 pg (27.0-31.0); MEAN CORPUSCULAR HGB CONC 32.6 g/dl (33.0-37.0); MEAN PLATELET VOLUME 11.7 fl (9.6-12.3); MONO # 0.6 10*3/uL (0.1-1.0); MONO % 3.9 % (3.0-9.0); NEUT % 89.2 % (47.0-73.0); PLATELET COUNT AUTOMATED 210 10*3/uL (130-400); RED BLOOD COUNT 4.41 10*6/uL (4.50-5.90); RED CELL DISTRI WIDTH 14.5 % (0-14.5); WHITE BLOOD COUNT 14.6 10*3/uL (4.8-10.8)
[2017-11-08 06:49] LABS: ALBUMIN 3.4 gm/dl (3.1-4.5); BUN 23 mg/dl (7-24); CHLORIDE 99 mmol/L (98-107); CHOLESTEROL 120 mg/dL (<200); CREATININE 1.14 mg/dL (0.70-1.30); HDL CHOLESTEROL 61 mg/dl (40-60); LDL CHOLESTEROL 51 mg/dL (9-159); POTASSIUM 4.2 mmol/L (3.5-5.1); SGOT/AST 9 IU/L (3-35); SGPT/ALT 17 U/L (12-78); SODIUM 140 mmol/L (136-145); TOTAL PROTEIN 6.6 gm/dL (6.4-8.2); TRIGLYCERIDES 42 mg/dl (<150); VLDL CHOLESTEROL 8 mg/dL (6-40)
[2017-11-08 06:55] LABS: INTERNATIONAL NORM RATIO 1.1 (2.0-3.5)
[2017-11-08 06:56] LABS: ALKALINE PHOSPHATASE 64 U/L (45-117)
[2017-11-08 07:36] LABS: ABG BASE EXCESS 6.1 mmol/L (-2.0-2.0); ABG HCO3 31.6 mmol/l (22-26); ABG O2 SATURATION 98.8 % (95-97); ARTERIAL BLOOD GAS PCO2 49.8 mmHg (35-45); ARTERIAL BLOOD GAS PH 7.416 (7.35-7.45)
[2017-11-08 08:00] VITALS: BP 130/60
[2017-11-08 08:38] LABS: VITAMIN D, 25-HYDROXY 22.4 ng/mL (30-100)
[2017-11-08 12:00] VITALS: BP 142/59
[2017-11-08 16:00] VITALS: BP 142/50
[2017-11-08 20:00] VITALS: BP 128/60
[2017-11-09] VITALS: BP 116/52
[2017-11-09 07:12] LABS: HEMATOCRIT 40.2 % (42.0-52.0); HEMOGLOBIN 13.1 g/dl (14.0-18.0); LYMPH # 1.2 10*3/uL (1.3-4.4); LYMPH % 5.7 % (27.0-41.0); MEAN CELL VOLUME 87.2 fl (80.0-94.0); MEAN CORPUSCULAR HGB 28.4 pg (27.0-31.0); MEAN CORPUSCULAR HGB CONC 32.6 g/dl (33.0-37.0); MEAN PLATELET VOLUME 11.9 fl (9.6-12.3); MONO # 0.8 10*3/uL (0.1-1.0); MONO % 3.7 % (3.0-9.0); NEUT # 18.8 10*3/uL (2.3-7.9); NEUT % 89.7 % (47.0-73.0); PLATELET COUNT AUTOMATED 222 10*3/uL (130-400); RED BLOOD COUNT 4.61 10*6/uL (4.50-5.90); RED CELL DISTRI WIDTH 14.7 % (0-14.5)
[2017-11-09 08:00] VITALS: BP 134/79
[2017-11-09] MEDS ORDERED: LEVAQUIN750 M1 PO (10:09)
[2017-11-09] MEDS ORDERED: PREDNISONE10 MG PO (10:09)
[2017-11-09 12:00] VITALS: BP 140/86
== END 2017-11-09 13:41 | disposition home or self-care (01) | DRG 871 ==
LOC: ED 00:03 → EDHOLD 01:41 → 5E 01:41
PROVIDERS: Emergency Medicine Emergency Medical Services; Family Medicine; Hospitalist; Internal Medicine Critical Care Medicine
PROC: 5A09357 Assistance with Respiratory Ventilation, Less than 24 Consecutive Hours, Continuous Positive Airway Pressure (ICD-10-PCS; principal; 2017-11-07)
DX: A41.9 Sepsis, unspecified organism (principal); I50.33 Acute on chronic diastolic (congestive) heart failure; J96.21 Acute and chronic respiratory failure with hypoxia; E87.3 Alkalosis; J18.9 Pneumonia, unspecified organism; D68.59 Other primary thrombophilia; E11.65 Type 2 diabetes mellitus with hyperglycemia; E66.01 Morbid (severe) obesity due to excess calories; I48.2 Chronic atrial fibrillation; J96.22 Acute and chronic respiratory failure with hypercapnia; J44.1 Chronic obstructive pulmonary disease with (acute) exacerbation; J44.0 Chronic obstructive pulmonary disease with (acute) lower respiratory infection; D64.9 Anemia, unspecified; E53.8 Deficiency of other specified B group vitamins; J20.9 Acute bronchitis, unspecified; G47.33 Obstructive sleep apnea (adult) (pediatric); E05.90 Thyrotoxicosis, unspecified without thyrotoxic crisis or storm; Z90.49 Acquired absence of other specified parts of digestive tract; Z87.891 Personal history of nicotine dependence; Z99.81 Dependence on supplemental oxygen; Z80.8 Family history of malignant neoplasm of other organs or systems; Z80.52 Family history of malignant neoplasm of bladder; Z82.49 Family history of ischemic heart disease and other diseases of the circulatory system; Z79.899 Other long term (current) drug therapy; Z68.30 Body mass index [BMI] 30.0-30.9, adult; Z79.84 Long term (current) use of oral hypoglycemic drugs

== ENCOUNTER 2017-11-16 12:30 | Inpatient (IN) | payer OTHER ==
[~2017-11-16] VITALS: Ht 185.4 cm; Wt 129.3 kg
--- NOTE | ~2017-11-16 | PR ---
[place], [place] PROGRESS NOTE NAME: BRIGIDA SYED UNIT #: [id number] ROOM: 515 DOCTOR: LIZBETH GORDON MD BIRTHDATE: [birth year] DOS: 11/20/2017 PULMONARY PROGRESS NOTE SUBJECTIVE: He has been noted comfortable at this time with gradual reduction of the respiratory complaints. Denies symptoms of chest pain, coughing, or sputum expectoration. Symptoms have been improving, but not completely resolved. He has been using a CPAP from home. OBJECTIVE: VITAL SIGNS: Normal temperature, respiratory rate 20, heart rate 63, and blood pressure 128/68. Pulse oxygen saturation on 3 liters nasal cannula is 96% saturation. HEENT: No acute change. NECK: Supple. Chronic obesity. CARDIOVASCULAR: S1, S2 audible. LUNGS: Scattered occasional wheezing. No crackles. ABDOMEN: Soft, obese, nontender. EXTREMITIES: Chronic obesity. LABORATORY DATA: BMP: BUN 30, creatinine was normal, CO2 40. WBC count 23.6, hemoglobin 13.4, hematocrit 41.0, and platelet count 189,000. IMPRESSION: 1. Leukocytosis, resolving. 2. Acute exacerbation of chronic obstructive pulmonary disease. 3. Acute tracheobronchitis. 4. Mild azotemia. 5. The patient with metabolic alkalosis secondary to the diuretics and hypercarbia. PLAN OF MANAGEMENT: No changes from the pulmonary standpoint for the patient at this time. Continuation of the bronchodilator with oxygen supplementation. Gradual reduction of Solu-Medrol for the patient will be done as well. The Solu-Medrol will be decreased to 30 mg b.i.d. for the patient from 60 mg b.i.d. Other supportive plan of therapy. Monitor leukocytosis. [place], [place] PROGRESS NOTE NAME: BRIGIDA SYED UNIT #: [id number] ROOM: 515 DOCTOR: LIZBETH GORDON MD BIRTHDATE: [birth year] LIZBETH ARRINGTON MD CM:PNTRANS [id number] LIZBETH ALLEN MD 11/20/17 0064 interface
--- NOTE | ~2017-11-16 | PR ---
[place], [place] PROGRESS NOTE NAME: BRIGIDA SYED UNIT #: [id number] ROOM: 515 DOCTOR: LIZBETH GORDON MD BIRTHDATE: [birth year] DOS: 11/19/2017 SUBJECTIVE: He has been noted comfortable at this time, resting using the BiPAP, reported reduction of symptoms of shortness of breath, but the cough has been noted mild without any sputum expectoration. Denies symptoms of chest pain or hemoptysis. Denies abdominal pain. The patient was not noted any edema of the extremities. OBJECTIVE: VITAL SIGNS: This morning, normal temperature, respiratory rate 22, heart rate 70, blood pressure 141/68. The pulse oxygen saturation recorded as 95% on 3 liters cannula. HEAD, EARS, EYES, NOSE AND THROAT: No acute change. NECK: Supple. CARDIOVASCULAR: S1, S2 audible. LUNGS: The patient was noted with moderate decreased breath sounds, scattered wheezing, no crackles. ABDOMEN: Soft, nontender. EXTREMITIES: Without any edema. GENITOURINARY: Nonfocal. MUSCULOSKELETAL: Without any acute deformities. CENTRAL NERVOUS SYSTEM: Intact. LABORATORY DATA: BMP of this morning, BUN 29,CO2 was 40. Remaining electrolytes were normal. The arterial blood gas, which has been noted. Chest x-ray of the patient that was done yesterday was reviewed shows severe COPD changes noted with emphysema in the upper lung without any acute pulmonary infiltration. IMPRESSION: The patient who has been currently responding the treatment for the medical management of acute exacerbation of chronic obstructive pulmonary disease with possible superimposed congestive heart failure, responding to treatment with reduction of the respiratory symptoms. PLAN OF MANAGEMENT: Continue diuretics, bronchodilators, oxygen supplementation. All other supportive therapy, plan of management. Usual care. No need for any antibiotic at this time. [place], [place] PROGRESS NOTE NAME: BRIGIDA SYED UNIT #: [id number] ROOM: [facility] DOCTOR: LIZBETH GORDON MD BIRTHDATE: [birth year] LIZBETH ARRINGTON MD CM:PNTRANS [id number] LIZBETH ALLEN MD 11/19/17 1706 interface
--- NOTE | ~2017-11-16 | CON ---
[place], [place] REPORT OF CONSULTATION NAME: BRIGIDA SYED [facility] #: [id number] UNIT #: [id number] ROOM: 515 DOCTOR: LIZBETH GORDON MD BIRTHDATE: [birth year] DOS: 11/18/2017 CONSULTATION REQUESTED BY: Hospitalist services. REASON FOR CONSULTATION: Assessment of symptoms of shortness of breath with chronic obstructive pulmonary disease exacerbation. HISTORY OF PRESENT ILLNESS: This is a 77-year-old white male patient, who has been recently treated in the hospital for acute exacerbation of chronic obstructive pulmonary disease and acute bronchitis. The patient was discharged home on 11/09/2017. The patient with marked improvement and resolution of acute symptoms were noted. He was sent home on the tapering dose of prednisone as well as the antibiotics. The patient has been readmitted to the hospital on 11/16/2017, and he was complaining of symptoms of having increased shortness of breath for the past few days. The coughing has been described intermittently with only clear sputum expectoration. The patient does have some wheezing with current symptoms as well. He has not been noted with symptoms of hemoptysis or any chest pain. He has been currently admitted to the hospital for the assessment of the current symptoms. The patient was brought to the hospital by the EMS. REVIEW OF SYSTEMS: CONSTITUTIONAL: He does have symptoms of fatigue and tiredness without any symptoms of fever or chills reported. EYES: Denies any burning, redness, or tenderness. THROAT: Denies sore throat, hoarseness, otalgia, postnasal drainage or epistaxis. CARDIOVASCULAR: Denies anginal pain, edema or pain of the lower extremities for the patient. GASTROINTESTINAL: Denies Dysphagia, nausea, vomiting, diarrhea, abdominal pain, hematemesis, melena, or hematochezia. GENITOURINARY SYMPTOMS: No dysuria, suprapubic pain, hematuria. MUSCULOSKELETAL: No acute joint pain, redness, or tenderness. Visible skin: No lesions or rashes. MUSCULOSKELETAL: The patient without any pain. CENTRAL NERVOUS SYSTEM: Dizziness, headache, diplopia, syncopal episodes. Remaining systems were reviewed. They were noted all negative. PAST MEDICAL HISTORY: 1. Centrilobular emphysema which was noted as severe. 2. Chronic hypoxic respiratory failure and acute congestive heart failure with diastolic dysfunction. 3. Hypercoagulable status, history. 4. Essential hypertension. 5. Moderate obesity. 6. Obstructive sleep apnea disorder. PAST SURGICAL HISTORY: 1. Exploratory laparotomy. [place], [place] REPORT OF CONSULTATION NAME: BRIGIDA SYED UNIT #: [id number] ROOM: [facility] DOCTOR: MURPHY ALLEN MD,[facility] BIRTHDATE: [birth year] 2. Appendectomy. 3. Inguinal hernia repair. 4. Broken tibia as well as fingers in the past. SOCIAL HISTORY: The patient is , lives at home. Denies history of alcohol use, illicit drug use. Tobacco use was noted in the patient since a teenager, a pack of cigarettes per day. The patient stated that he had not been smoking any cigarettes since 2012. History of intermittent ____ for the patient was noted. No history of alcohol use or illicit drugs. FAMILY HISTORY: Father at age of 87 years of complications of acute myocardial infarction. Mother at age of 63 years of complication of cancer of the stomach. CURRENT MEDICATIONS: Administered as use of IV Lasix, vitamin D, Cardizem-CD, Eliquis, DuoNeb, IV Solu-Medrol 60 mg b.i.d., Levaquin, Zosyn and vancomycin. PHYSICAL EXAMINATION: VITAL SIGNS: Pulse oxygen saturation was noted on 2 liter nasal cannula is 95%-97% saturation. HEENT: Examination shows head was atraumatic. Eyes were nonicterus. NECK: Supple. CARDIOVASCULAR: S1, S2 audible. LUNGS: The patient noted with general reduction in breath sounds, scattered crackles and wheezing. ABDOMEN: Soft, obese, and nontender. EXTREMITIES: Shows mild edema. SKIN: With no lesions or rashes. MUSCULOSKELETAL: No deformities. Cranial nerves 2-12 intact. No focal deficits. LABORATORY DATA: Lactic acid yesterday was normal. CMP yesterday, BUN 34, creatinine 1.42. Carbon dioxide 38. The CBC of the patient of 11/16/2017, a BUN of 16.1, remaining CBC was normal. CBC this morning, normal WBC count and the remaining CBC. PT/PTT normal this morning. BMP: BUN 34.3, creatinine 1.29, CO2 36. Vancomycin trough level 18.9. Blood cultures, no bacterial growth for the patient taken on the . Final culture results were pending. The chest x-ray of the patient just 1 view taken in the Emergency Department on the 11/16/2017 for the patient shows mild blunting of the right costophrenic angle with small infiltration in the right lower lobe cannot be completely excluded. Because of the lack of lateral view, the exact assessment of the patient cannot be confidently seen for pulmonary abnormality. IMPRESSION: 1. The patient will be currently admitted to the hospital noted with finding suggestive of possibility of congestive heart failure with chronic obstructive pulmonary disease exacerbation. Whether the patient has pneumonia at this time or not was unknown. 2. History of previous congestive heart failure, diastolic dysfunction as well [place], [place] REPORT OF CONSULTATION NAME: BRIGIDA SYED UNIT #: [id number] ROOM: [facility] DOCTOR: LIZBETH GORDON MD BIRTHDATE: [birth year] with possible acute decompensation. 3. Chronic obesity. 4. Obstructive sleep apnea disorder. PLAN OF MANAGEMENT: The patient had been receiving diuretic therapy, bronchodilators, antibiotics and corticosteroids. Obtain a new chest x-ray of patient, PA and lateral view for this patient to reassess the current pulmonary abnormality. If no infiltration seen for the patient, consider discontinuation of all the broad spectrum intravenous antibiotics at that time. Steroid dose will be gradually decreased. Continue diuretics. Supportive therapy, plan of management and other care. Additional treatment changes for the patient will be continued based on the progression of the illness. Continue the use of CPAP from home as well as previously. Thanks for allowing me to participate in the care of this patient. LIZBETH ARRINGTON MD CM:CONSTR:REPORT OF CONSULTATION 1239 11/19/17 0158 interface
--- NOTE | ~2017-11-16 | EKG ---
[place], [place] ELECTROCARDIOGRAM REPORT NAME: BRIGIDA SYED UNIT #: [id number] ROOM: [facility] DOCTOR: MURPHY ALLEN MD,LIZBETH BIRTHDATE: [birth year] DOS: 11/16/2017 TIME: Done at 1:42 p.m. FINDINGS: Atrial fibrillation was suspected; however, baseline artifact noted in the electrocardiogram limit the assessment of the cardiac arrhythmia. ____ irregularity was noted suggestive of atrial fibrillation. The maximum heart rate noted as 113 beats per minute. LIZBETH ARRINGTON MD CM:EKGRPT:ELECTROCARDIOGRAM REPORT 1627 1731 LIZBETH ALLEN MD
[2017-11-16 12:30] VITALS: BP 188/69
[2017-11-16 13:40] LABS: HEMATOCRIT 46.3 % (42.0-52.0); HEMOGLOBIN 14.9 g/dl (14.0-18.0); MEAN CELL VOLUME 88.2 fl (80.0-94.0); MEAN CORPUSCULAR HGB 28.4 pg (27.0-31.0); MEAN CORPUSCULAR HGB CONC 32.2 g/dl (33.0-37.0); MEAN PLATELET VOLUME 11.5 fl (9.6-12.3); PLATELET COUNT AUTOMATED 227 10*3/uL (130-400); RED BLOOD COUNT 5.25 10*6/uL (4.50-5.90); RED CELL DISTRI WIDTH 15.1 % (0-14.5); WHITE BLOOD COUNT 16.1 10*3/uL (4.8-10.8)
[2017-11-16 13:54] LABS: ALBUMIN 3.7 gm/dl (3.1-4.5); CREATININE 1.42 mg/dL (0.70-1.30); POTASSIUM 3.9 mmol/L (3.5-5.1); TOTAL PROTEIN 6.7 gm/dL (6.4-8.2)
[2017-11-16 13:57] LABS: BURR CELLS FEW; PLATELET SUFFICIENCY NORMAL (NORMAL); TOTAL CELLS COUNTED 100 #CELLS
[2017-11-16 14:00] VITALS: BP 166/98
[2017-11-16 15:23] VITALS: BP 108/52
[2017-11-16 16:47] VITALS: BP 142/71
[2017-11-16] MEDS ORDERED: DILTIAZEM240 M1 PO (17:52)
[2017-11-16] MEDS ORDERED: VITAMIN D-32000 UNIT PO (17:52)
[2017-11-16] MEDS ORDERED: LASIX40 MG PO (17:53)
[2017-11-16 20:00] VITALS: BP 123/67
[2017-11-17] VITALS: BP 147/66
[2017-11-17 06:45] LABS: BASO % 0.2 % (0.0-1.0); HEMATOCRIT 43.3 % (42.0-52.0); LYMPH # 0.5 10*3/uL (1.3-4.4); LYMPH % 5.1 % (27.0-41.0); MEAN CELL VOLUME 89.1 fl (80.0-94.0); MEAN CORPUSCULAR HGB 28.8 pg (27.0-31.0); MEAN CORPUSCULAR HGB CONC 32.3 g/dl (33.0-37.0); MEAN PLATELET VOLUME 11.7 fl (9.6-12.3); MONO # 0.4 10*3/uL (0.1-1.0); MONO % 4.4 % (3.0-9.0); NEUT % 88.3 % (47.0-73.0); PLATELET COUNT AUTOMATED 165 10*3/uL (130-400); RED BLOOD COUNT 4.86 10*6/uL (4.50-5.90)
[2017-11-17 07:13] LABS: ACT PARTIAL THROMBO TIME 33.7 SECONDS (20.8-31.5); ALKALINE PHOSPHATASE 78 U/L (45-117); BUN 33 mg/dl (7-24); CHLORIDE 98 mmol/L (98-107); CREATININE 1.29 mg/dL (0.70-1.30); INTERNATIONAL NORM RATIO 1.1 (2.0-3.5); PHOSPHOROUS 4.2 mg/dL (2.5-4.9); POTASSIUM 4.2 mmol/L (3.5-5.1); SGOT/AST 22 IU/L (3-35); SGPT/ALT 22 U/L (12-78); SODIUM 140 mmol/L (136-145)
[2017-11-17 08:00] VITALS: BP 135/78
[2017-11-17 12:01] VITALS: BP 142/70
[2017-11-17 16:00] VITALS: BP 131/81
[2017-11-17 20:00] VITALS: BP 138/75
[2017-11-18] VITALS: BP 125/54
[2017-11-18 08:03] VITALS: BP 142/70
[2017-11-18 12:00] VITALS: BP 124/65
[2017-11-18 16:00] VITALS: BP 127/70
[2017-11-18 20:00] VITALS: BP 141/62
[2017-11-19] VITALS: BP 156/67
[2017-11-19 08:00] VITALS: BP 141/68
[2017-11-19 08:20] LABS: BUN 29 mg/dl (7-24); CHLORIDE 98 mmol/L (98-107); CREATININE 1.07 mg/dL (0.70-1.30); POTASSIUM 3.9 mmol/L (3.5-5.1); SODIUM 141 mmol/L (136-145)
[2017-11-19 12:00] VITALS: BP 124/44
[2017-11-19 16:00] VITALS: BP 110/90
[2017-11-19 20:00] VITALS: BP 139/65
[2017-11-20] VITALS: BP 148/83
[2017-11-20 07:01] LABS: HEMOGLOBIN 13.4 g/dl (14.0-18.0); MEAN CELL VOLUME 89.3 fl (80.0-94.0); MEAN CORPUSCULAR HGB 29.2 pg (27.0-31.0); MEAN CORPUSCULAR HGB CONC 32.7 g/dl (33.0-37.0); MEAN PLATELET VOLUME 11.1 fl (9.6-12.3); PLATELET COUNT AUTOMATED 189 10*3/uL (130-400); RED BLOOD COUNT 4.59 10*6/uL (4.50-5.90); RED CELL DISTRI WIDTH 14.8 % (0-14.5); WHITE BLOOD COUNT 23.6 10*3/uL (4.8-10.8)
[2017-11-20 07:34] LABS: BUN 30 mg/dl (7-24); CHLORIDE 97 mmol/L (98-107); CREATININE 0.88 mg/dL (0.70-1.30); POTASSIUM 4.3 mmol/L (3.5-5.1); SODIUM 140 mmol/L (136-145)
[2017-11-20 07:42] LABS: OVALOCYTES FEW; PLATELET SUFFICIENCY NORMAL (NORMAL); TOTAL CELLS COUNTED 100 #CELLS
[2017-11-20 08:00] VITALS: BP 128/68
[2017-11-20 12:00] VITALS: BP 145/72
[2017-11-20] MEDS ORDERED: PREDNISONE10 MG PO (13:36)
== END 2017-11-20 16:15 | disposition home or self-care (01) | DRG 871 ==
LOC: ED 12:30 → 5E 16:26
PROVIDERS: Emergency Medicine; Family Medicine; Internal Medicine
DX: A41.9 Sepsis, unspecified organism (principal); J18.9 Pneumonia, unspecified organism; N17.0 Acute kidney failure with tubular necrosis; J96.11 Chronic respiratory failure with hypoxia; J96.12 Chronic respiratory failure with hypercapnia; E44.0 Moderate protein-calorie malnutrition; E87.3 Alkalosis; I50.32 Chronic diastolic (congestive) heart failure; J44.0 Chronic obstructive pulmonary disease with (acute) lower respiratory infection; J44.1 Chronic obstructive pulmonary disease with (acute) exacerbation; I11.0 Hypertensive heart disease with heart failure; G47.33 Obstructive sleep apnea (adult) (pediatric); J20.9 Acute bronchitis, unspecified; T50.2X5A Adverse effect of carbonic-anhydrase inhibitors, benzothiadiazides and other diuretics, initial encounter; I48.2 Chronic atrial fibrillation; E83.41 Hypermagnesemia; E11.65 Type 2 diabetes mellitus with hyperglycemia; E86.0 Dehydration; E66.01 Morbid (severe) obesity due to excess calories; R65.20 Severe sepsis without septic shock; Z99.81 Dependence on supplemental oxygen; Z87.891 Personal history of nicotine dependence; Z68.36 Body mass index [BMI] 36.0-36.9, adult; Z79.2 Long term (current) use of antibiotics; Z79.899 Other long term (current) drug therapy; Z90.49 Acquired absence of other specified parts of digestive tract; Z80.0 Family history of malignant neoplasm of digestive organs; Z82.49 Family history of ischemic heart disease and other diseases of the circulatory system; Y92.89 Other specified places as the place of occurrence of the external cause

== ENCOUNTER 2017-12-29 02:27 | Inpatient (IN) | payer OTHER ==
[~2017-12-29] VITALS: Ht 185.4 cm; Wt 107.0 kg
[2017-12-29] VITALS (10 sets, daily range): BP systolic 112–156; BP diastolic 53–88
[~2017-12-29 02:27] MED LIST changes: +DILTIAZEM240 M1 PO; +VITAMIN D-32000 UNIT PO
[2017-12-29 02:49] LABS: BASO % 0.3 % (0.0-1.0); EOS # 0.2 10*3/uL (0.0-0.4); EOS % 1.6 % (1.0-4.0); HEMATOCRIT 41.9 % (42.0-52.0); HEMOGLOBIN 13.1 g/dl (14.0-18.0); LYMPH # 1.8 10*3/uL (1.3-4.4); LYMPH % 12.6 % (27.0-41.0); MEAN CELL VOLUME 89.3 fl (80.0-94.0); MEAN CORPUSCULAR HGB 27.9 pg (27.0-31.0); MEAN CORPUSCULAR HGB CONC 31.3 g/dl (33.0-37.0); MEAN PLATELET VOLUME 11.4 fl (9.6-12.3); MONO # 1.5 10*3/uL (0.1-1.0); MONO % 10.2 % (3.0-9.0); NEUT # 10.8 10*3/uL (2.3-7.9); NEUT % 74.5 % (47.0-73.0); PLATELET COUNT AUTOMATED 247 10*3/uL (130-400); RED BLOOD COUNT 4.69 10*6/uL (4.50-5.90); RED CELL DISTRI WIDTH 15.4 % (0-14.5); WHITE BLOOD COUNT 14.5 10*3/uL (4.8-10.8)
[2017-12-29 03:00] LABS: ABG BASE EXCESS 6.2 mmol/L (-2.0-2.0); ABG HCO3 31.6 mmol/l (22-26); ABG O2 SATURATION 94.4 % (95-97); ARTERIAL BLOOD GAS PH 7.415 (7.35-7.45)
[2017-12-29 03:01] LABS: ACT PARTIAL THROMBO TIME 34.7 SECONDS (20.8-31.5); INTERNATIONAL NORM RATIO 1.1 (2.0-3.5)
[2017-12-29 03:07] LABS: ALBUMIN 2.9 gm/dl (3.1-4.5); ALKALINE PHOSPHATASE 77 U/L (45-117); BUN 14 mg/dl (7-24); CHLORIDE 98 mmol/L (98-107); CREATININE 1.17 mg/dL (0.70-1.30); POTASSIUM 3.9 mmol/L (3.5-5.1); SGOT/AST 12 IU/L (3-35); SGPT/ALT 12 U/L (12-78); SODIUM 141 mmol/L (136-145); TOTAL PROTEIN 7.5 gm/dL (6.4-8.2)
[2017-12-29 03:08] LABS: TROPONIN I 0.029 ng/ml (<0.045)
[2017-12-29 15:01] LABS: BILIRUBIN NEGATIVE (NEGATIVE); BLOOD NEGATIVE (NEGATIVE); CLARITY CLOUDY (CLEAR); COLOR YELLOW (YELLOW); GLUCOSE TRACE (NEGATIVE); KETONE NEGATIVE (NEGATIVE); LEUKO ESTERASE NEGATIVE (NEGATIVE); NITRITE NEGATIVE (NEGATIVE); PH 5.5 (5.0-9.0); SPECIFIC GRAVITY >= 1.030 (1.005-1.030); UROBILINOGEN 0.2 E.U./dl (0.2-1.0)
[2017-12-29 15:13] LABS: BACTERIA 4+; HYALINE CAST TNTC; MUCOUS TRACE; RBC 0-2 rbc/hpf (0-2); WBC 0-2 wbc/hpf (0-5)
[2017-12-30] VITALS: BP 117/52
[2017-12-30 06:33] LABS: BASO % 0.2 % (0.0-1.0); HEMATOCRIT 37.6 % (42.0-52.0); LYMPH # 1.2 10*3/uL (1.3-4.4); LYMPH % 6.4 % (27.0-41.0); MEAN CELL VOLUME 88.1 fl (80.0-94.0); MEAN CORPUSCULAR HGB 28.1 pg (27.0-31.0); MEAN CORPUSCULAR HGB CONC 31.9 g/dl (33.0-37.0); MEAN PLATELET VOLUME 11.9 fl (9.6-12.3); MONO # 0.6 10*3/uL (0.1-1.0); MONO % 3.1 % (3.0-9.0); NEUT # 16.4 10*3/uL (2.3-7.9); NEUT % 89.5 % (47.0-73.0); PLATELET COUNT AUTOMATED 245 10*3/uL (130-400); RED BLOOD COUNT 4.27 10*6/uL (4.50-5.90); RED CELL DISTRI WIDTH 14.9 % (0-14.5); WHITE BLOOD COUNT 18.4 10*3/uL (4.8-10.8)
[2017-12-30 07:04] LABS: ALBUMIN 2.8 gm/dl (3.1-4.5); CHLORIDE 96 mmol/L (98-107); POTASSIUM 3.9 mmol/L (3.5-5.1); SODIUM 137 mmol/L (136-145)
[2017-12-30 07:07] LABS: ALKALINE PHOSPHATASE 78 U/L (45-117); PHOSPHOROUS 4.2 mg/dL (2.5-4.9); SGOT/AST 12 IU/L (3-35); SGPT/ALT 12 U/L (12-78); TOTAL PROTEIN 7.2 gm/dL (6.4-8.2)
[2017-12-30 07:48] LABS: BUN 25 mg/dl (7-24)
[2017-12-30 07:52] VITALS: BP 104/58
[2017-12-30 12:00] VITALS: BP 119/62
[2017-12-30 16:00] VITALS: BP 101/56
[2017-12-30 20:00] VITALS: BP 140/54
[2017-12-31] VITALS: BP 114/63
[2017-12-31 06:10] LABS: HEMATOCRIT 36.4 % (42.0-52.0); HEMOGLOBIN 11.6 g/dl (14.0-18.0); MEAN CELL VOLUME 88.1 fl (80.0-94.0); MEAN CORPUSCULAR HGB 28.1 pg (27.0-31.0); MEAN CORPUSCULAR HGB CONC 31.9 g/dl (33.0-37.0); MEAN PLATELET VOLUME 11.7 fl (9.6-12.3); PLATELET COUNT AUTOMATED 269 10*3/uL (130-400); RED BLOOD COUNT 4.13 10*6/uL (4.50-5.90); RED CELL DISTRI WIDTH 15.2 % (0-14.5); WHITE BLOOD COUNT 27.5 10*3/uL (4.8-10.8)
[2017-12-31 06:43] LABS: CHLORIDE 97 mmol/L (98-107); CREATININE 1.34 mg/dL (0.70-1.30); POTASSIUM 3.7 mmol/L (3.5-5.1); SODIUM 137 mmol/L (136-145)
[2017-12-31 06:55] LABS: BUN 36 mg/dl (7-24)
[2017-12-31 07:08] LABS: TOTAL CELLS COUNTED 100 #CELLS
[2017-12-31 07:09] LABS: PLATELET SUFFICIENCY NORMAL (NORMAL)
[2017-12-31 08:00] VITALS: BP 124/64
[2017-12-31] MEDS ORDERED: PREDNISONE10 MG PO (10:26)
[2017-12-31] MEDS ORDERED: LEVAQUIN750 M1 PO (10:26)
[2017-12-31] MEDS ORDERED: MUCINEX1200 M1 PO (10:26)
== END 2017-12-31 11:50 | disposition home or self-care (01) | DRG 871 ==
LOC: ED 02:27 → EDHOLD 04:31 → 5E 04:35
PROVIDERS: Family Medicine; Internal Medicine; Student in an Organized Health Care Education/Training Program
DX: A41.9 Sepsis, unspecified organism (principal); J18.9 Pneumonia, unspecified organism; J96.11 Chronic respiratory failure with hypoxia; E44.0 Moderate protein-calorie malnutrition; J96.12 Chronic respiratory failure with hypercapnia; E11.65 Type 2 diabetes mellitus with hyperglycemia; S32.030A Wedge compression fracture of third lumbar vertebra, initial encounter for closed fracture; E66.01 Morbid (severe) obesity due to excess calories; I50.32 Chronic diastolic (congestive) heart failure; J44.1 Chronic obstructive pulmonary disease with (acute) exacerbation; J44.0 Chronic obstructive pulmonary disease with (acute) lower respiratory infection; I11.0 Hypertensive heart disease with heart failure; D64.9 Anemia, unspecified; G47.33 Obstructive sleep apnea (adult) (pediatric); E53.8 Deficiency of other specified B group vitamins; I48.2 Chronic atrial fibrillation; E83.41 Hypermagnesemia; W18.39XA Other fall on same level, initial encounter; Z79.899 Other long term (current) drug therapy; Z80.0 Family history of malignant neoplasm of digestive organs; Z90.49 Acquired absence of other specified parts of digestive tract; Z87.891 Personal history of nicotine dependence; Z82.49 Family history of ischemic heart disease and other diseases of the circulatory system; Y93.89 Activity, other specified; Y92.098 Other place in other non-institutional residence as the place of occurrence of the external cause; Y99.8 Other external cause status; Z68.31 Body mass index [BMI] 31.0-31.9, adult; Z79.4 Long term (current) use of insulin

== ENCOUNTER 2018-02-27 17:55 | Inpatient (IN) | payer OTHER ==
[~2018-02-27] VITALS: Ht 185.4 cm; Wt 110.0 kg
[~2018-02-27 17:55] MED LIST changes: +MUCINEX1200 M1 PO
[2018-02-27 18:01] VITALS: BP 127/64
[2018-02-27 18:34] LABS: HEMATOCRIT 44.1 % (42.0-52.0); HEMOGLOBIN 13.8 g/dl (14.0-18.0); MEAN CELL VOLUME 89.5 fl (80.0-94.0); MEAN CORPUSCULAR HGB CONC 31.3 g/dl (33.0-37.0); MEAN PLATELET VOLUME 11.9 fl (9.6-12.3); PLATELET COUNT AUTOMATED 183 10*3/uL (130-400); RED BLOOD COUNT 4.93 10*6/uL (4.50-5.90); RED CELL DISTRI WIDTH 14.6 % (0-14.5); WHITE BLOOD COUNT 22.9 10*3/uL (4.8-10.8)
[2018-02-27 18:46] LABS: ACT PARTIAL THROMBO TIME 35.1 SECONDS (20.8-31.5); INTERNATIONAL NORM RATIO 1.1 (2.0-3.5)
[2018-02-27 18:51] LABS: ALBUMIN 3.3 gm/dl (3.1-4.5); ALKALINE PHOSPHATASE 79 U/L (45-117); BUN 14 mg/dl (7-24); CHLORIDE 98 mmol/L (98-107); CREATININE 1.23 mg/dL (0.70-1.30); LIPASE 48 U/L (73-393); POTASSIUM 3.3 mmol/L (3.5-5.1); SGOT/AST 11 IU/L (3-35); SGPT/ALT 11 U/L (12-78); SODIUM 139 mmol/L (136-145); TOTAL PROTEIN 7.5 gm/dL (6.4-8.2)
[2018-02-27 18:52] LABS: TROPONIN I < 0.015 ng/ml (<0.045)
[2018-02-27 18:55] LABS: ATYPICAL LYMPHS 5 % (0-0); BASOPHILS 1 % (0-1); TOTAL CELLS COUNTED 100 #CELLS
[2018-02-27 18:56] LABS: PLATELET SUFFICIENCY NORMAL (NORMAL)
[2018-02-27 19:00] VITALS: BP 142/65
[2018-02-27 19:56] LABS: BILIRUBIN NEGATIVE (NEGATIVE); BLOOD NEGATIVE (NEGATIVE); CLARITY CLEAR (CLEAR); COLOR YELLOW (YELLOW); GLUCOSE NEGATIVE (NEGATIVE); KETONE NEGATIVE (NEGATIVE); LEUKO ESTERASE 1+ (NEGATIVE); NITRITE NEGATIVE (NEGATIVE)
[2018-02-27 20:13] LABS: BACTERIA TRACE
[2018-02-27 20:22] VITALS: BP 131/65
[2018-02-27 20:33] VITALS: BP 131/65
[2018-02-28] VITALS: BP 125/69
[2018-02-28 06:36] LABS: ALBUMIN 2.8 gm/dl (3.1-4.5); BUN 14 mg/dl (7-24); CHLORIDE 105 mmol/L (98-107); CHOLESTEROL 90 mg/dL (<200); CREATININE 1.14 mg/dL (0.70-1.30); PHOSPHOROUS 1.4 mg/dL (2.5-4.9); POTASSIUM 3.7 mmol/L (3.5-5.1); SGOT/AST 8 IU/L (3-35); SGPT/ALT 10 U/L (12-78); SODIUM 142 mmol/L (136-145); TRIGLYCERIDES 29 mg/dl (<150); VLDL CHOLESTEROL 6 mg/dL (6-40)
[2018-02-28 06:43] LABS: ALKALINE PHOSPHATASE 68 U/L (45-117); FREE T4 1.04 ng/dl (0.76-1.46); HDL CHOLESTEROL 44 mg/dl (40-60); LDL CHOLESTEROL 40 mg/dL (9-159); THYROID STIM HORMONE (HS) 0.174 uIU/ml (0.358-4.75); TOTAL PROTEIN 6.7 gm/dL (6.4-8.2)
[2018-02-28 06:51] LABS: HEMATOCRIT 39.4 % (42.0-52.0); HEMOGLOBIN 12.4 g/dl (14.0-18.0); MEAN CELL VOLUME 89.7 fl (80.0-94.0); MEAN CORPUSCULAR HGB 28.2 pg (27.0-31.0); MEAN CORPUSCULAR HGB CONC 31.5 g/dl (33.0-37.0); MEAN PLATELET VOLUME 12.7 fl (9.6-12.3); PLATELET COUNT AUTOMATED 154 10*3/uL (130-400); RED BLOOD COUNT 4.39 10*6/uL (4.50-5.90); RED CELL DISTRI WIDTH 14.5 % (0-14.5); WHITE BLOOD COUNT 17.7 10*3/uL (4.8-10.8)
[2018-02-28 07:33] LABS: VITAMIN D, 25-HYDROXY 33.3 ng/mL (30-100)
[2018-02-28 07:58] LABS: TOTAL CELLS COUNTED 100 #CELLS
[2018-02-28 07:59] LABS: BURR CELLS FEW; PLATELET SUFFICIENCY NORMAL (NORMAL)
[2018-02-28 08:00] VITALS: BP 138/56
[2018-02-28 12:00] VITALS: BP 140/50
[2018-02-28 16:00] VITALS: BP 136/69
[2018-02-28 20:00] VITALS: BP 143/71
[2018-03-01] VITALS: BP 125/69
[2018-03-01 06:23] LABS: BASO % 0.1 % (0.0-1.0); HEMOGLOBIN 11.3 g/dl (14.0-18.0); LYMPH % 5.8 % (27.0-41.0); MEAN CELL VOLUME 88.9 fl (80.0-94.0); MEAN CORPUSCULAR HGB 27.9 pg (27.0-31.0); MEAN CORPUSCULAR HGB CONC 31.4 g/dl (33.0-37.0); MEAN PLATELET VOLUME 12.4 fl (9.6-12.3); MONO % 5.7 % (3.0-9.0); NEUT % 87.4 % (47.0-73.0); PLATELET COUNT AUTOMATED 174 10*3/uL (130-400); RED BLOOD COUNT 4.05 10*6/uL (4.50-5.90); RED CELL DISTRI WIDTH 14.6 % (0-14.5); WHITE BLOOD COUNT 17.2 10*3/uL (4.8-10.8)
[2018-03-01 06:39] LABS: BUN 23 mg/dl (7-24); CHLORIDE 105 mmol/L (98-107); CREATININE 1.12 mg/dL (0.70-1.30); POTASSIUM 3.3 mmol/L (3.5-5.1); SODIUM 142 mmol/L (136-145)
[2018-03-01 08:00] VITALS: BP 143/66
[2018-03-01 12:00] VITALS: BP 140/72
[2018-03-01 16:00] VITALS: BP 148/95
[2018-03-01 20:00] VITALS: BP 131/56
[2018-03-02] VITALS: BP 141/70
[2018-03-02 06:20] LABS: BASO % 0.2 % (0.0-1.0); EOS # 0.1 10*3/uL (0.0-0.4); EOS % 0.9 % (1.0-4.0); HEMATOCRIT 38.3 % (42.0-52.0); HEMOGLOBIN 12.1 g/dl (14.0-18.0); LYMPH # 2.1 10*3/uL (1.3-4.4); LYMPH % 17.1 % (27.0-41.0); MEAN CELL VOLUME 90.3 fl (80.0-94.0); MEAN CORPUSCULAR HGB 28.5 pg (27.0-31.0); MEAN CORPUSCULAR HGB CONC 31.6 g/dl (33.0-37.0); MEAN PLATELET VOLUME 12.4 fl (9.6-12.3); MONO # 1.2 10*3/uL (0.1-1.0); NEUT # 8.9 10*3/uL (2.3-7.9); NEUT % 71.3 % (47.0-73.0); PLATELET COUNT AUTOMATED 201 10*3/uL (130-400); RED BLOOD COUNT 4.24 10*6/uL (4.50-5.90); RED CELL DISTRI WIDTH 14.7 % (0-14.5); WHITE BLOOD COUNT 12.4 10*3/uL (4.8-10.8)
[2018-03-02 06:38] LABS: BUN 18 mg/dl (7-24); CHLORIDE 108 mmol/L (98-107); CREATININE 1.18 mg/dL (0.70-1.30); POTASSIUM 3.1 mmol/L (3.5-5.1); SODIUM 145 mmol/L (136-145)
[2018-03-02 08:00] VITALS: BP 130/82
[2018-03-02 12:00] VITALS: BP 152/80
[2018-03-02 16:00] VITALS: BP 169/94
[2018-03-02 20:00] VITALS: BP 119/75
[2018-03-03] VITALS: BP 128/63
[2018-03-03 06:59] LABS: BASO % 0.2 % (0.0-1.0); EOS # 0.3 10*3/uL (0.0-0.4); HEMATOCRIT 38.5 % (42.0-52.0); HEMOGLOBIN 12.2 g/dl (14.0-18.0); LYMPH # 2.3 10*3/uL (1.3-4.4); LYMPH % 21.1 % (27.0-41.0); MEAN CELL VOLUME 89.3 fl (80.0-94.0); MEAN CORPUSCULAR HGB 28.3 pg (27.0-31.0); MEAN CORPUSCULAR HGB CONC 31.7 g/dl (33.0-37.0); MEAN PLATELET VOLUME 12.1 fl (9.6-12.3); MONO # 1.5 10*3/uL (0.1-1.0); MONO % 13.8 % (3.0-9.0); NEUT # 6.7 10*3/uL (2.3-7.9); NEUT % 61.3 % (47.0-73.0); PLATELET COUNT AUTOMATED 203 10*3/uL (130-400); RED BLOOD COUNT 4.31 10*6/uL (4.50-5.90); RED CELL DISTRI WIDTH 14.6 % (0-14.5); WHITE BLOOD COUNT 10.8 10*3/uL (4.8-10.8)
[2018-03-03 07:18] LABS: BUN 13 mg/dl (7-24); CHLORIDE 106 mmol/L (98-107); CREATININE 0.99 mg/dL (0.70-1.30); POTASSIUM 3.6 mmol/L (3.5-5.1); SODIUM 144 mmol/L (136-145)
[2018-03-03 08:00] VITALS: BP 144/81
[2018-03-03 12:00] VITALS: BP 150/89
[2018-03-03 16:00] VITALS: BP 147/86
[2018-03-03 20:00] VITALS: BP 136/85
[2018-03-04] VITALS: BP 157/70
[2018-03-04 08:00] VITALS: BP 137/76
[2018-03-04 12:00] VITALS: BP 155/86
[2018-03-04] MEDS ORDERED: PREDNISONE10 MG PO (13:05)
[2018-03-04] MEDS ORDERED: LEVAQUIN750 M1 PO (13:05)
== END 2018-03-04 13:50 | disposition home or self-care (01) | DRG 871 ==
LOC: ED 17:55 → EDHOLD 19:47 → 5E 19:47
PROVIDERS: Family Medicine; Internal Medicine; Internal Medicine Hospice and Palliative Medicine; Physician Assistant
DX: A41.9 Sepsis, unspecified organism (principal); I50.33 Acute on chronic diastolic (congestive) heart failure; E87.4 Mixed disorder of acid-base balance; J96.11 Chronic respiratory failure with hypoxia; E44.0 Moderate protein-calorie malnutrition; J18.1 Lobar pneumonia, unspecified organism; J96.12 Chronic respiratory failure with hypercapnia; D68.59 Other primary thrombophilia; J44.0 Chronic obstructive pulmonary disease with (acute) lower respiratory infection; E11.65 Type 2 diabetes mellitus with hyperglycemia; I48.2 Chronic atrial fibrillation; E83.39 Other disorders of phosphorus metabolism; Y95 Nosocomial condition; D64.9 Anemia, unspecified; I11.0 Hypertensive heart disease with heart failure; E66.3 Overweight; R65.20 Severe sepsis without septic shock; D72.810 Lymphocytopenia; W19.XXXA Unspecified fall, initial encounter; E87.6 Hypokalemia; G47.33 Obstructive sleep apnea (adult) (pediatric); Z99.89 Dependence on other enabling machines and devices; Z99.81 Dependence on supplemental oxygen; Z79.52 Long term (current) use of systemic steroids; Z79.899 Other long term (current) drug therapy; Z90.49 Acquired absence of other specified parts of digestive tract; Z87.891 Personal history of nicotine dependence; Z80.0 Family history of malignant neoplasm of digestive organs; Z82.49 Family history of ischemic heart disease and other diseases of the circulatory system; Z68.30 Body mass index [BMI] 30.0-30.9, adult; Y93.89 Activity, other specified; Y92.89 Other specified places as the place of occurrence of the external cause; Y99.8 Other external cause status

== ENCOUNTER 2018-03-14 08:07 | Inpatient (IN) | payer OTHER ==
[~2018-03-14] VITALS: Ht 185.4 cm; Wt 108.9 kg
[2018-03-14] VITALS (19 sets, daily range): BP systolic 85–191; BP diastolic 47–112
--- NOTE | ~2018-03-14 | EKG ---
[place], [place] ELECTROCARDIOGRAM REPORT NAME: BRIGIDA SYED UNIT #: [id number] ROOM: [facility] DOCTOR: MURPHY ALLEN MD,LIZBETH BIRTHDATE: [birth year] DOS: 03/14/2018 ELECTROCARDIOGRAM TIME: 09:08 a.m. FINDINGS: Electrocardiogram shows atrial fibrillation with rapid ventricular response. Heart rate of 115 beats per minute. T-wave inversion noted in the inferior leads. LIZBETH ARRINGTON MD CM:EKGRPT:ELECTROCARDIOGRAM REPORT 1433 1442 LIZBETH ALLEN MD
--- NOTE | ~2018-03-14 | CON ---
[place], [place] REPORT OF CONSULTATION NAME: BRIGIDA SYED UNIT #: [id number] ROOM: [facility] DOCTOR: MURPHY ALLEN MD,LIZBETH BIRTHDATE: [birth year] DOS: 03/14/2018 SHORT NOTE CONSULTATION The patient was asked for consultation, but transferred to another hospital prior to assessment. LIZEBTH ARRINGTON MD CM:CONSTR:REPORT OF CONSULTATION 1433 03/15/18 2317 interface
[2018-03-14 08:31] LABS: HEMATOCRIT 49.1 % (42.0-52.0); HEMOGLOBIN 15.1 g/dl (14.0-18.0); MEAN CELL VOLUME 91.4 fl (80.0-94.0); MEAN CORPUSCULAR HGB 28.1 pg (27.0-31.0); MEAN CORPUSCULAR HGB CONC 30.8 g/dl (33.0-37.0); MEAN PLATELET VOLUME 11.3 fl (9.6-12.3); PLATELET COUNT AUTOMATED 298 10*3/uL (130-400); RED BLOOD COUNT 5.37 10*6/uL (4.50-5.90); RED CELL DISTRI WIDTH 14.9 % (0-14.5); WHITE BLOOD COUNT 26.4 10*3/uL (4.8-10.8)
[2018-03-14 08:36] LABS: ABG BASE EXCESS 4.4 mmol/L (-2.0-2.0); ABG HCO3 37.3 mmol/l (22-26); ABG O2 SATURATION 98.9 % (95-97)
[2018-03-14 08:42] LABS: ARTERIAL BLOOD GAS PH 7.188 (7.35-7.45)
[2018-03-14 08:47] LABS: ACT PARTIAL THROMBO TIME 26.4 SECONDS (20.8-31.5)
[2018-03-14 08:49] LABS: ALBUMIN 3.7 gm/dl (3.1-4.5); ALKALINE PHOSPHATASE 88 U/L (45-117); BUN 25 mg/dl (7-24); CHLORIDE 94 mmol/L (98-107); CREATININE 1.24 mg/dL (0.70-1.30); POTASSIUM 4.6 mmol/L (3.5-5.1); SGOT/AST 34 IU/L (3-35); SGPT/ALT 30 U/L (12-78); SODIUM 138 mmol/L (136-145); TOTAL PROTEIN 7.8 gm/dL (6.4-8.2)
[2018-03-14 08:50] LABS: TROPONIN I 0.027 ng/ml (<0.045)
[2018-03-14 08:52] LABS: ATYPICAL LYMPHS 10 % (0-0); TOTAL CELLS COUNTED 100 #CELLS
[2018-03-14 08:53] LABS: PLATELET SUFFICIENCY NORMAL (NORMAL)
[2018-03-14 08:54] LABS: BURR CELLS FEW
[2018-03-14 13:12] LABS: ABG BASE EXCESS 5.2 mmol/L (-2.0-2.0); ABG HCO3 34.9 mmol/l (22-26); ABG O2 SATURATION 96.5 % (95-97); ARTERIAL BLOOD GAS PH 7.269 (7.35-7.45); ARTERIAL BLOOD GAS PO2 94.9 mmHg (80-90)
[2018-03-14 13:18] LABS: ARTERIAL BLOOD GAS PCO2 77.8 mmHg (35-45)
[2018-03-14] MEDS ORDERED: MUCINEX1200 M1 PO (13:40)
[2018-03-14] MEDS ORDERED: PREDNISONE10 MG PO (13:42)
== END 2018-03-14 16:17 | disposition short-term general hospital (02) | DRG 871 ==
LOC: ED 08:07 → EDHOLD 08:59 → ICCU 11:02
PROVIDERS: Emergency Medicine; Internal Medicine Critical Care Medicine
PROC: B548ZZA Ultrasonography of Superior Vena Cava, Guidance (ICD-10-PCS; principal; 2018-03-14)
PROC: 02HV33Z Insertion of Infusion Device into Superior Vena Cava, Percutaneous Approach (ICD-10-PCS; principal; 2018-03-14)
PROC: 5A1935Z Respiratory Ventilation, Less than 24 Consecutive Hours (ICD-10-PCS; principal; 2018-03-14)
DX: A41.9 Sepsis, unspecified organism (principal); R65.21 Severe sepsis with septic shock; J96.21 Acute and chronic respiratory failure with hypoxia; J18.9 Pneumonia, unspecified organism; I11.0 Hypertensive heart disease with heart failure; I50.32 Chronic diastolic (congestive) heart failure; I48.91 Unspecified atrial fibrillation; E11.65 Type 2 diabetes mellitus with hyperglycemia; J96.22 Acute and chronic respiratory failure with hypercapnia; J44.0 Chronic obstructive pulmonary disease with (acute) lower respiratory infection; J44.1 Chronic obstructive pulmonary disease with (acute) exacerbation; Z68.31 Body mass index [BMI] 31.0-31.9, adult; Z99.81 Dependence on supplemental oxygen; J44.9 Chronic obstructive pulmonary disease, unspecified; E66.01 Morbid (severe) obesity due to excess calories; G47.33 Obstructive sleep apnea (adult) (pediatric); E83.41 Hypermagnesemia; E53.8 Deficiency of other specified B group vitamins; Z90.49 Acquired absence of other specified parts of digestive tract; Z87.891 Personal history of nicotine dependence; Z87.81 Personal history of (healed) traumatic fracture; Z91.81 History of falling; Z80.0 Family history of malignant neoplasm of digestive organs; Z82.49 Family history of ischemic heart disease and other diseases of the circulatory system